=== PATIENT | female | born 2000 | race Caucasian/White ===

== ENCOUNTER → 2024-11-04 | Outpatient (CLI) | payer OTHER, SELFPAY ==
[2024-11-04 08:54] LABS: Hemoglobin A1c 5.3 % (<=5.6)
[2024-11-04 08:57] LABS: ALB/GLOB Ratio 1.7 RATIO (0.9-2.4); AST(SGOT) 25 U/L (<=31); Alanine Aminotransfer ALT/SGPT 18 U/L (<=34); Albumin, Serum 4.6 g/dL (3.5-5.0); Alkaline Phosphatase 82 U/L (35-104); Anion Gap 10 (5-15); BUN 14 mg/dL (4-19); BUN/Creat Ratio 16.6 RATIO (10-20); Calcium,Total 9.4 mg/dL (7.6-11.0); Carbon Dioxide 22.8 mmol/L (21.0-32.0); Chloride 104 mmol/L (98-108); Cholesterol 193 mg/dL (<=190); Creatinine, Serum 0.86 mg/dL (0.70-1.20); EST Glomerular Filtration Rate 97 (>60); Globulin 2.8 g/dL (2.2-4.2); Glucose 96 mg/dL (70-99); High Density Lipoprotein 60 mg/dL; Low Density Lipoprotein Calc. 118 mg/dL; Protein, Total 7.3 g/dL (5.9-8.4); Sodium Level 137 mmol/L (133-145); Total Bilirubin 0.41 mg/dL (0.00-1.30); Triglycerides 73 mg/dL; Very Low Density Lipoprotein 15 mg/dL (5-40); cholesterol:hdl ratio screen 3.21
== END | disposition home or self-care (01) ==
LOC: LAB 08:12
PROVIDERS: PCP Nurse Practitioner Family; Referring Provider Nurse Practitioner Family; Visit Provider Nurse Practitioner Family
DX: Z00.00 Encounter for general adult medical examination without abnormal findings (principal); Z13.1 Encounter for screening for diabetes mellitus; Z13.220 Encounter for screening for lipoid disorders
CPT/HCPCS: 36415; 80053; 80061; 83036

== ENCOUNTER 2025-02-05 16:56 | Emergency (ER) | payer OTHER, SELFPAY ==
[2025-02-05 16:57] VITALS: BP 147/101; PULSE 85; RESP 16; TEMP 35.7; O2SAT 99; BMI 31.6
--- NOTE | 2025-02-05 17:08 | EDS_ITS ---
HPI History of Present Illness Chief Complaint: Upper Extremity Injury Detail of Chief Complaint: Injury to left elbow Informant: patient Narrative Narrative: Patient presents to the emergency department with injury to her left arm that occurred yesterday. Patient was going into the pool and slipped and struck her left arm on the edge of the step. She is right-hand dominant. Having pain with movement at the elbow and feels something popping on the inside. PFSH PFSH Medical History no medical history Home Medications ?Medication ?Instructions ?Recorded ?Last Taken ?Type NK 02/05/25 Unknown History Allergy/AdvReac Type Severity Reaction Status Date / Time amoxicillin (From Augmentin) Allergy Intermediate HIVES Verified 02/05/25 16:59 cefdinir (From Omnicef) Allergy Intermediate Hives Verified 02/05/25 16:59 cephalexin (From Keflex) Allergy Intermediate Hives Verified 02/05/25 16:59 clavulanic acid (From Allergy Intermediate HIVES Verified 02/05/25 16:59 Augmentin) Social History Smoking Status: Never smoker ROS ROS ED Review of Systems ROS Unobtainable: other Constitutional Constitutional ED: Reports lethargy; Denies chills, fever(s), sweats or weight loss Eyes Eyes: Denies blurry vision, change in vision or diplopia ENT ENT ED: Denies rhinorrhea or sore throat Cardiovascular Cardiovascular: Denies chest pain, orthopnea or racing heartbeat Respiratory/Chest Respiratory/Chest: Denies cough, dyspnea, dyspnea on exertion, orthopnea or sputum Gastrointestinal Gastrointestinal: Denies abdominal pain, diarrhea, nausea or vomiting Genitourinary Genitourinary ED: Denies dysuria, hematuria or urinary frequency Musculoskeletal Musculoskeletal: Reports other Details: Left elbow pain/injury ; Denies arthralgias, back pain, myalgias or neck pain Integumentary Denies abscess, Abrasions or rash Neurologic Neurologic: Denies headache(s) or weakness Psychiatric Psychiatric: Denies anxiety, depression or suicidal thoughts Endocrine Endocrinology: Denies polydipsia, polyphagia or polyuria Hematologic/Lymphatic Hematologic/Lymphatic: Denies easy bleeding, easy bruising or lymphadenopathy Allergic/Immunologic Allergic/Immunologic ED: Denies mouth swelling, tongue swelling or urticaria EXAM Physical Exam Const Vital Signs: 02/05/25 16:57 Temperature 96.3 F L Temperature Source Temporal Pulse Rate 85 Respiratory Rate 16 Blood Pressure 147/101 H Blood Pressure Mean 116 Pulse Ox 99 Oxygen Delivery Method Room Air Positive well nourished and well developed General Appearance ED: well developed and NAD HEENT Reports TM's clear and moist mucous membranes normocephalic and atraumatic; Negative for trauma or tenderness Tympanic Membrane ED: Yes TM's clear Eyes PERRL and EOMs intact bilaterally General Eye ED: Negative for pale conjunctiva or scleral icterus Neck no lymphadenopathy, supple and no JVD General: Negative for tenderness Chest Wall inspection of chest normal and palpation of chest normal Chest: Negative for tenderness Resp normal respiratory effort and clear to auscultation bilaterally Effort and Inspection: Negative for respiratory distress or pain with movement Auscultation: Negative for rhonchi, wheezes or diminished lung sounds Cardio regular rate, regular rhythm, S1 normal heart sound, S2 normal heart sound and no murmurs Peripheral Pulses: pulses 2+ throughout GI normal to inspection, nondistended, normoactive bowel sounds, soft to palpation, non-tender, non-distended and no masses Back/Spine no CVA tenderness and no thoracic nor lumbar tenderness Extremity Extremity Narrative: Left elbow-patient has diffuse soft tissue swelling. She has limited range of motion in flexion and extension secondary to pain. She has pain with pronation and supination. She is superficial abrasion to the lateral aspect of the elbow and proximal forearm. Neurovascular intact distally. General Extremety ED: Negative for edema General Extremity: Negative for edema Neuro oriented x3, CN's II-XII intact bilaterally, no sensory deficits noted and gait normal Sensorium / Orientation: awake, alert, oriented to person, oriented to place and oriented to time Motor Exam: strength 5/5 throughout and strength abnormal Psych mental status grossly normal Skin no rashes or lesions noted and no wounds MDM MDM MDM Narrative Medical decision making narrative: Patient presents with a fall that occurred yesterday and injury to the left elbow. She has superficial abrasion. She is up-to-date on tetanus. X-rays of the left elbow obtained 3 views showed no obvious fracture although initial lateral view was limited therefore radiology asked that we repeat the lateral view which was performed. Again no fractures were noted. This point suspect likely contusion. Will place in a sling. Advised to follow-up with primary care physician within next 5 to 7 days as if she continues to have significant discomfort may require repeat imaging. Patient does not want thing for pain. She is instructed to use ice to the area. Radiography Diagnostic Testing: Three-view x-ray of left elbow obtained interpreted by myself as no evidence of fracture or dislocation. Radiology in agreement. Discharge Plan Triage Chief Complaint: Upper Extremity Injury ED Provider: Elizabeth Ramos Dx/Rx/DC Orders Clinical Impression: Contusion of elbow, left Instructions: ED Contusion, Elbow Prescriptions: No Action NK Primary Care Provider: Pat Ortiz Referrals: Pat Ortiz [facility] [Primary Care Provider] - 5-7 Days Print Language: Persian Disposition Disposition: Home, Self Care
--- NOTE | 2025-02-05 17:20 | RAD_ITS ---
PROCEDURE: ELBOW MIN 3 VIEWS 02/05/2025 REASON FOR EXAM: INJURY TECHNIQUE: ELBOW MIN 3 VIEWS COMPARISON: None FINDINGS: No displaced fracture or traumatic malalignment. There is poor positioning on the lateral view which limits this evaluation, particularly for evidence of joint effusion. Posterior soft tissue swelling. RAD/Elbow min 3 Views IMPRESSION: 1. Suboptimal patient positioning on the lateral view limits this evaluation. Within these limitations, no evidence of a displaced fracture. Consider repeating the lateral view if there is persistent clinical concern. 2. Posterior soft tissue swelling. Reading Location: [facility]
--- OUTSIDE RECORDS SUMMARY | 2025-02-05 17:25 | XMS RPT_ITS | CCD ---
Author Organization [facility] Care Team Providers Care Director Retirement Name Role Phone LISET SCHMITZ Unavailable Unavailable REFERRED, SELF Unavailable Unavailable LISET SCMHITZ Unavailable Unavailable Manoj Dior MD Primary Care Provider Manoj Dior MD Primary Care Provider MANOJ DIOR Primary Care Unavailable ROSETTE SIDDIQI Attending Unavail able MANOJ DIOR Primary Care Unavailable ROSETTE SIDDIQI Attending Unavail able Pat Ortiz Primary Care Unavailable Pat Ortiz Attending Unavailable Pat Ortiz Referring Unavailable Amos Malin Referring Unavailable Kody Lomax Attending Unavailable Amos Malin Primary Care Unavailable Allergies Allergy Classification Reported Allergen(s) Allergy Type Date of Onset Reaction(s) Facility (6 sources) cephalexin; Translations: [CEPHALEXIN] Drug Allergy 5 [facility] Repository (6 sources) AMOXICILLIN-POT CLAVULANATE; Translations: [AMOXICILLIN-POT CLAVULANATE] Propensity to adverse reactions to drug (disorder) 5 [facility] Repository (5 sources) cefdinir; Translations: [CEFDINIR] Drug Allergy 0 [facility] Work Phone: Medications Current Medications Medication Drug Class(es) Dates Sig (Normalized) Sig (Original) copper 313 mg drug implant (3 sources) Copper-containing Intrauterine Device Start: 02-09-2023 End: 02-06-2033 copper (PARAGARD) 380 square mm intrauterine device 1 Intra Uterine Device by INTRAUTERINE route as directed. 1 Intra Uterine Device 0 02/09/2023 02/06/2033 Active Comment on above: 1 Intra Uterine Marie ce by INTRAUTERINE route as directed. MULTIVITAMIN ORAL (4 sources) MULTIVITAMIN ORA L Take by mouth. 0 Active Comment on above: Take by mouth. tranexamic acid 650 mg oral tablet (3 sources) Antifibrinolytic Agent Start: 03-06-2023 End: 03-11-2023 take 2 tablets by mouth every eight hours as needed tranexamic acid (LYSTEDA) 650 mg tablet Take 2 tablets by mouth three times daily as needed (heavy menstrual bleeding) for up to 5 days. 30 tablet 0 03/06/2023 Active Comment on above: Take 2 tablets by mo uth three times daily as needed (heavy menstrual bleeding) for up to 5 days. 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 1 tablet 0 01/27/2023 01/27/2023 Comment on above: Take 1 tablet by yordan th one time only for 1 dose. Ethinyl Estradiol / Ferrous fumarate / Norethindrone (2 sources) Estrogen Start: 10-07-2021 End: 03-06-2023 take 1 tablet by mouth once daily, then take 0.05 tablet by mouth once Norethin Zackery-Eth Estrad-FE (BLISOVI FE ,) 1 mg-20 mcg (21)/75 mg (7) per tablet Indications: Contraceptive education Take 1 tablet by mouth once daily. 84 tablet 2 10/07/2021 03/06/2023 Discontinued Start: 10-07-2021 take 1 tablet by yordan th once daily, then take 0.05 tablet by mouth once Norethin Zackery-Eth Estrad-FE (BLISOVI FE 08/08, ,) 1 mg-20 mcg (21)/75 mg (7) per tablet Indications: Contraceptive education Take 1 tablet by mouth once daily. 84 tablet 2 10/07/2021 Active Comment on above: Take 1 tablet by yordan th once daily. miSOPROStol 0.2 mg oral tablet (2 sources) Prostaglandin E1 Analog Start: 01-27-2023 End: 03-06-2023 miSOPROStol (CYTOTEC) 200 mcg tablet Take two tablets PO night before procedure and two tablets morning of procedure 4 tablet 0 01/27/2023 03/06/2023 Discontinued Comment on above: Take two tablets PO night before procedure and two tablets morning of procedure Problems Problem Classification Problem Date Documented Da te Episodic/Chronic Anxiety disorders (1 source) Anticipatory anxiety; Translations: [Anxiety disorder, unspecified] 01-27-2023 Chronic Contraceptive and procreative management (6 sources) Patient encounter status; Translations: [Encounter for other general counseling and advice on contraception] 01-27-2023 Episodic Other female genital disorders (1 source) Abnormal uterine bleeding; Translations: [Abnormal uterine and vaginal bleeding, unspecified] 03-06-2023 Chronic Other screening for suspected conditions (not mental disorders or infectious disease) (1 source) Cancer cervix screening status; Translations: [Encounter for screening for malignant neoplasm of cervix] 02-24-2024 Episodic Results Test Name Value Interpretation Reference Range [facility] Metabolic Prof [facility] 11-04-2024 Albumin [Mass/Vol] 4.6 g/dL Normal 3.5-5.0 [facility] Comment on above: Performed By: #### L 500.4100, L500.4050, L501.9985 #### [facility] [address] [place], [address] Albumin/Globulin [Mass ratio] 1.7 {ratio} Normal 0.9-2.4 [facility] Comment on above: Performed By: #### L 500.4100, L500.4050, L501.9985 #### [facility] [address] [place], [address] ALK PHOS 82 U/L Normal 35-104 [facility] Comment on above: Performed By: #### L 500.4100, L500.4050, L501.9985 #### [facility] [address] [place], [address] ALT [Catalytic activity/Vol] 18 U/L Normal <=34 [facility] Comment on above: Performed By: #### L 500.4100, L500.4050, L501.9985 #### [facility] [address] [place], [address] AST [Catalytic activity/Vol] 25 U/L Normal <=31 [facility] Comment on above: Performed By: #### L 500.4100, L500.4050, L501.9985 #### [facility] [address] [place], [address] Bilirubin [Mass/Vol] 0.41 mg/dL Normal 0.00-1.30 [facility] Comment on above: Performed By: #### L 500.4100, L500.4050, L501.9985 #### [facility] [address] [place], [address] BUN/CRE 16.6 RATIO Normal 10-20 [facility] Comment on above: Performed By: #### L 500.4100, L500.4050, L501.9985 #### [facility] [address] [place], [address] Calcium [Mass/Vol] 9.4 mg/dL Normal 7.6-11.0 [facility] Comment on above: Performed By: #### L 500.4100, L500.4050, L501.9985 #### [facility] [address] [place], [address] Chloride [Moles/Vol] 104 mmol/L Normal 98-108 [facility] Comment on above: Performed By: #### L 500.4100, L500.4050, L501.9985 #### [facility] [address] [place], [address] CO2 [Moles/Vol] 22.8 mmol/L Normal 21.0-32.0 [facility] Comment on above: Performed By: #### L 500.4100, L500.4050, L501.9985 #### [facility] [address] [place], [address] Creatinine [Mass/Vol] 0.86 mg/dL Normal 0.70-1.20 [facility] Comment on above: Performed By: #### L 500.4100, L500.4050, L501.9985 #### [facility] [address] [place], [address] GAP 10 Normal 5-15 [facility] Comment on above: Performed By: #### L 500.4100, L500.4050, L501.9985 #### [facility] [address] [place], [address] GFR/1.73 sq M.predicted among non-blacks MDRD (S/P/Bld) [Vol rate/Area] 97 mL/min/{1.73_m2} Normal >60 [facility] Comment on above: Result Comment: mL/m in/1.73m2 CKD-EPI Creatinine Equation (2020) Performed By: #### L 500.4100, L500.4050, L501.9985 #### [facility] [address] [place], [address] Globulin (S) [Mass/Vol] 2.8 g/dL Normal 2.2-4.2 [facility] Comment on above: Performed By: #### L 500.4100, L500.4050, L501.9985 #### [facility] [address] [place], [address] Glucose [Mass/Vol] 96 mg/dL Normal 70-99 [facility] Comment on above: Performed By: #### L 500.4100, L500.4050, L501.9985 #### [facility] [address] [place], [address] Potassium [Moles/Vol] 4.0 mmol/L Normal 3.3-5.1 [facility] Comment on above: Performed By: #### L 500.4100, L500.4050, L501.9985 #### [facility] [address] [place], [address] Sodium [Moles/Vol] 137 mmol/L Normal 133-145 [facility] Comment on above: Performed By: #### L 500.4100, L500.4050, L501.9985 #### [facility] [address] [place], [address] T PROT 7.3 g/dL Normal 5.9-8.4 [facility] Comment on above: Performed By: #### L 500.4100, L500.4050, L501.9985 #### [facility] [address] [place], [address] Urea nitrogen [Mass/Vol] 14 mg/dL Normal 4-19 [facility] Comment on above: Performed By: #### L 500.4100, L500.4050, L501.9985 #### [facility] [address] [place], [address] Hemoglobin A1con 11-04-2024 HbA1c (Bld) [Mass fraction] 5.3 % Normal <=5.6 [facility] Comment on above: Result Comment: Norm al < 5.7 % Prediabetic 5.7 - 6.4 % Diabetic >or= 6.5 % Please note range changes. Performed By: #### L 500.4100, L500.4050, L501.9985 #### [facility] [address] [place], [address] Lipid Profileon 11-04-2024 CHOL:HDL 3.21 Normal [facility] Comment on above: Performed By: #### L 500.4100, L500.4050, L501.9985 #### [facility] [address] [place], [address] Cholesterol [Mass/Vol] 193 mg/dL High <=190 [facility] Comment on above: Result Comment: Chol esterol level, Desirable <200 mg/dL Borderline high cholesterol 200-239 mg/dL High cholesterol >=240 mg/dL Recommendations of the NCEP Adult Treatment Panel for the following risk-cutoff thresholds for the [place] population. Performed By: #### L 500.4100, L500.4050, L501.9985 #### [facility] [address] [place], [address] Cholesterol in HDL [Mass/Vol] 60 mg/dL Normal [facility] Comment on above: Result Comment: Bhumi onal Cholesterol Education Program (NCEP) guidelines: <40 mg/dL: Low HDL-cholesterol (major risk factor for CHD) >= 60 mg/dL: High HDL-cholesterol (negative risk factor for CHD) HDL-cholesterol is affected by a number of factors, e.g. smoking, exercise, hormones, sex and age. Performed By: #### L 500.4100, L500.4050, L501.9985 #### [facility] [address] [place], [address] Cholesterol in LDL [Mass/Vol] 118 mg/dL Normal [facility] Comment on above: Result Comment: Bord csscdv=786-680 mg/dL Higher Upau=045 mg/dL or greater Performed By: #### L 500.4100, L500.4050, L501.9985 #### [facility] [address] [place], [address] Cholesterol in VLDL [Mass/Vol] 15 mg/dL Normal 5-40 [facility] Comment on above: Performed By: #### L 500.4100, L500.4050, L501.9985 #### [facility] [address] [place], [address] Triglyceride [Mass/Vol] 73 mg/dL Normal [facility] Comment on above: Result Comment: The drugs N-Acetylcysteine and Metamizole may falsely depress this assay. Normal range: <150 mg/dL Borderline High: 150-199 mg/dL High: 200-499 mg/dL Very High: >500 mg/dL Performed By: #### L 500.4100, L500.4050, L501.9985 #### [facility] [address] [place], [address] Office Visit Reporton 2023 Office Visit Report [facility] [address] [place] [address] OFFICE VISIT Date of Service: 12/07/23 MR#: [id number] Acct: [id number] Patient: SHANTHI DAMON Rep #: [id number] : 2000 Provider: LUCITA Ventura Age/Sex: 23/F Location: [facility] Status: Signed Intake Intake Visit Reasons: PE/NON DOT/DRUG SCREEN/CHRIS IND Office Procedures [facility] Billing Sheet Testing Breath Alcohol Test in ED (saxophone teacher fee charged): No Breath Alcohol in [facility]: No Breath Alcohol Test Pre-Employment: No Chest X-Ray (interpreted by radiologist): No DOT Drug Screen: No DOT Physical Exam: No DOT Pre-Employment Breath Alcohol: No DOT Pre-Employment Drug Screen: No DOT Reasonable Suspicion: No Drug Screen Collection Only: No Drug Test Performed by another entity: No ECG: No ED exhibition specialist Fee: No Employer Ordered Physical: No Flu Test: No Functional Capacity Evaluation: No Glucose (Finger): No Hair Collection Drug Screen: No Hair Collection Only: No Hair Testing Extended (Opiates): No HCG: No Hearing (Audiogram) Test: No Non-DOT Breath Alcohol Test in ED: No Non-DOT Random Drug Screen: No Non-DOT Reasonable Suspicion: No On Site Service Call (min of 1 hr plus cost of drug screen): No Other DOT Drug Screen: No Other Non-DOT Drug Screen: No Post-Accident DOT Drug Screen (in ED saxophone teacher fee charged): No Post-Accident DOT Drug Screen in [facility]: No Post-Accident Non-DOT Breath Alcohol Test: No Post-Accident NON-DOT Drug Screen (saxophone teacher fee charged in ED): No Post-Accident NON-DOT Drug Screen in ED (saxophone teacher fee charged): No Post-Accident NON-DOT Drug Screen in [facility]: No Pre-Employment Drug Screen [facility]: No Pre-Employment Drug Screen: Yes Pre-Employment PE: No Random Consortium DOT (yearly plus drug testing fee): No Random Consortium Non-DOT (yearly plus drug testing fee): No Respirator Clearance (form only): No Respirator Fit Testing: No RSV/Flu Amber: No Saliva Drug Screen: No Second Drug Screen: No Strep Amber: No TB Test: No Tdap (over age 7): No Titmus Screening: No Vision Test: No Stress Test (conducted interpreted by a community health educator): No Occquant-Quantiferon: No 03/07/24 0651 Date Kody Hernández Signature: Date (if applicable) CC: Normal [facility] C. trachomatis+N. gonorrhoea e DNA JOSE ARMANDO+probe Ql (Unsp spec)on 02-24-2024 C. trachomatis rRNA JOSE ARMANDO+probe Ql (Unsp spec) Negative Normal Negative for Chlamydia trachomatis by amplificaton [facility] Comment on above: Order Comment: Speci men Type: SWAB Ordering Facility: [facility] Address: [address] [place] [address] Performed By: #### 3 6902-5 #### [facility] CLIA [id number] [address] [place] [address] [place] N. gonorrhoeae rRNA JOSE ARMANDO+probe Ql (Unsp spec) Negative Normal Negative for Neisseria gonorrhoeae by amplification [facility] Comment on above: Order Comment: Speci men Type: SWAB Ordering Facility: [facility] Address: [address] [place] [address] Performed By: #### 3 6902-5 #### [facility] CLIA [id number] [address] [id number] [place] CNOVon 02-24-2024 CNOV Office Visit (OBGYWM ) ----- SHANTHI DAMON ([id number]) 4 F UPA Date Time Provider Department 02/24/24 9:20 AM ROSETTE SIDDIQI OBGYWM During your visit today, we recorded the following information about you: Blood pressure Weight Height Last Period 112/70 74.4 kg 1.6 m 02/06/24 Rosette Siddiqi MD 02/24/2024 9:30 AM Signed Guitar Teacher offered: Patient declinesJenise Maki is a 23 year old who presents for an annual gynecologic exam without complaints. Got kinyarwanda frank puppy and new house. Menses: cycles every 28-30 days and 5-6 days of flow. 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 PAST MEDICAL HISTORY 08/2015: Menstrual cycle disorder No date: NEGATIVE MEDICAL HISTORY Comment: normal Color visionPAST SURGICAL HISTORY 02/14/2021: TONSILLECTOMY AND ADENOIDECTOMY 02/11/2024: TOOTH EXTRACTION Comment: [place] teeth FAMILY HISTORY Problem Relation Age of Onset Seizures Mother None Father No Known Problems Sister Hypertension Maternal Grandmother None Maternal Grandfather None Paternal Grandmother None Paternal Grandfather Breast Cancer Maternal great-grandmother age unknown SOCIAL HISTORY Social History Tobacco Use Smoking status: Never Smokeless tobacco: Never Vaping Use Vaping Use: Never used Substance Use Topics Alcohol use: Yes Comment: occasional Drug use: Never REVIEW OF SYSTEMS Abdomen: No abdominal pain, nausea, vomiting, diarrhea, or constipation. No bloating, early satiety, indigestion, or increased flatulence. Bladder: No dysuria, gross hematuria, urinary frequency, urinary urgency, or incontinence. Breast: No breast lumps, nipple d/c, overlying skin changes, redness or skin retraction. Allergies and current medication updated:Yes EXAM: BP 112/70 Ht 5' 3 (1.60m) Wt 164 lb (74.4kg) LMP 02/06/2024 BMI 29.06 kg/(m2). GENERAL: pleasant, female in no apparent distress HEENT: Normocephalic, atraumatic, mucus membranes moist, and no lesions NECK: Supple, full range of motion, no adenopathy, and thyroid normal DERMATOLOGY: Normal, without lesions, non-icteric, and non-hirsute BREAST: soft, non-tender, symmetric, no dominant mass, normal nipple-areolar complex, no lymphadenopathy, and no nipple discharge ABDOMEN: soft, non-tender, and no masses PELVIC: external genitalia normal, normal Bartholin's glands, urethra, Jauca's glands, no vulvar lesions, no cervical lesions, good vaginal support, physiologic discharge present, normal appearing perineal body and perianal region, IUD strings visible BIMANUAL: uterus normal size, shape and consistency, no adnexal masses, and non-tender RECTOVAGINAL: deferred. NEURO: alert and oriented x3,exam grossly non-focal EXTREMITIES: normal ASSESSMENT/PLAN: 1) Health maintenance: Pap done with reflex HPV. Mammogram starting age 40. Nutrition, exercise and routine health maintenance exams reviewed. HPV vaccine: completed series 2) Contraception: IUD. Contraceptive options reviewed and information provided. 3) STD screening: Accepted STD check for Gonorrhea and Chlamydia. 4) Follow up one year or sooner as needed Rosette Gudino MD Allergies As of Date: 02/24/2024 Noted Allergy Reaction AUGMENTIN (AMOXICILLIN-POT CLAVUL*07/15/2019 4 - Hives KEFLEX (CEPHALEXIN) 07/15/2019 4 - Hives OMNICEF (CEFDINIR) 09/14/2009 4 - Hives Date Reviewed: 02/24/2024 Reviewed by: Meghan Rice MA - Fully Assessed Reason for Visit: Well Woman [1463] Primary Visit Diagnosis:Encounter for gynecological examination (general) (routine) without abnormal findings [Z01.419] Other Visit Diagnoses:Screening for cervical cancer [Z12.4] Encounter for screening for human papillomavirus (HPV) [Z11.51] Screen for STD (sexually transmitted disease) [Z11.3] Order(s):PAP TEST [[id number]] Order #: [id number] GONORRHEA/CHLAMYDIA NAAT [SQGCCT] Order #: [id number] Prescriptions as of 02/24/2024 - tranexamic acid (LYSTEDA) 650 mg tablet Take 2 tablets by mouth three times daily as needed (heavy menstrual bleeding) for up to 5 days. - copper (PARAGARD) 380 square mm intrauterine device 1 Intra Uterine Device by INTRAUTERINE route as directed. - MULTIVITAMIN ORAL Take by mouth. Problem List As Of Date 02/24/2024 Noted Resolved Well adult exam [Z00.00] 07/14/2014 Disposition: (more content not included)... Normal [facility] PAP TESTon 02-24-2024 ADEQUACY Satisfactory for interpretation. Normal [facility] Comment on above: Order Comment: Speci men Type: FLUID SPECIMEN Ordering Facility: [facility] Address: [address] [place] [address] Performed By: #### L [id number] #### [facility] CLIA [id number] [address] [place], [place] [address] [address] [place] CASE REPORT Normal [facility] Comment on above: Order Comment: Speci men Type: FLUID SPECIMEN Ordering Facility: [facility] Address: [address] [place] [address] Result Comment: Gyne cologic Cytology Report Case: [id number] Authorizing Provider: Rosette Siddiqi, Collected: 02/24/2024 09:34 AM Ordering Location: OB/Gynecology Received: 02/24/2024 12:01 PM First Screen: [place], [place]iah, CT, ASCP Specimen: Pap Test, ThinPrep, Cervix Performed By: #### L [id number] #### [facility] CLIA [id number] [address] [place], [place] [id number] [place] CLINICAL HISTORY, CYTOLOGY, SURVEYOR INSTRUMENT ASSISTANT First Pap Smear Normal [facility] Comment on above: Order Comment: Speci men Type: FLUID SPECIMEN Ordering Facility: [facility] Address: [address] [place] [address] Performed By: #### L [id number] #### [facility] CLIA [id number] [address] [place] [address] [place] FINAL PERFORMING LAB Normal [facility] Comment on above: Order Comment: Speci men Type: FLUID SPECIMEN Ordering Facility: [facility] Address: [address] [place] [address] Result Comment: Tech nical component, lung puller screening performed at [facility], [address] [place], [place] [id number] CLIA# [id number] Diagnostic interpretation performed at [facility], [address] [place], [place] [id number] CLIA# [id number] Space Buyer: Felix Worthington M.D. Performed By: #### L [id number] #### [facility] CLIA [id number] [address] [place] [address] [place] HPV REFLEX HPV if Atypical Normal [facility] Comment on above: Order Comment: Speci men Type: FLUID SPECIMEN Ordering Facility: [facility] Address: [address] [place], [place] [address] Performed By: #### L [id number] #### [facility] CLIA [id number] [address] [place], [place] [id number] [place] INTERPRETATION, CYTOLOGY, SURVEYOR INSTRUMENT ASSISTANT Normal [facility] Comment on above: Order Comment: Speci men Type: FLUID SPECIMEN Ordering Facility: [facility] Address: [address] [place], [place] [id number] Result Comment: Nega tive for intraepithelial lesion or malignancy. Performed By: #### L [id number] #### [facility] CLIA [id number] [address] [place] [address] [place] LMP 02/06/2024 Normal [facility] Comment on above: Order Comment: Speci men Type: FLUID SPECIMEN Ordering Facility: [facility] Address: [address] [place] [address] Performed By: #### L [id number] #### [facility] CLIA [id number] [address] [place] [address] [place] PAP DISCLAIMER COMMENT The Pap Smear is a screening test for cervical cancer. False negative results occur with all screening tests, emphasizing the need for rescreening at recommended intervals, and clinical correlation. Normal [facility] Comment on above: Order Comment: Speci men Type: FLUID SPECIMEN Ordering Facility: [facility] Address: [address] [place] [address] Performed By: #### L [id number] #### [facility] CLIA [id number] [address] [place] [address] [place] PAP BELL NECK HAMMERER COMMENT This specimen has been analyzed by the ThinPrep Imaging System, an automated imaging and review system, which assists the laboratory in evaluating cells on ThinPrep Pap tests. Following automated imaging, selected sol from every slide are reviewed by a lung puller. Normal [facility] [place] Comment on above: Order Comment: Speci men Type: FLUID SPECIMEN Ordering Facility: [facility] Address: [address] [place] [address] Performed By: #### L [id number] #### [facility] CLIA [id number] [address] [place] [place] [address] [place] CNOVon 04-01-2023 CNOV Office Visit (OBGYWM ) ----- SHANTHI DAMON ([id number]) 4 F UPA Date Time Provider Department 04/01/23 3:20 PM ROSETTE SIDDIQI OBGYW During your visit today, we recorded the following information about you: Blood pressure Weight 124/80 74.4 kg Rosette Siddiqi MD 04/01/2023 3:18 PM Signed Guitar Teacher offered: Patient declines. Shanthi Damon presents today for IUD check. She had a Paraguard placed on 02/12/23. She has had no complications since placement. REVIEW OF SYSTEMS: GENERAL: Negative for fever PHYSICAL EXAMINATION: BP 124/80 Wt 164 lb (74.4kg) LMP 01/17/2023 ABDOMEN:soft, non-tender, no masses, no hepatosplenomegaly, and no lymphadenopathy EXTERNAL GENITALIA: Normal genitalia CERVIX: smooth, no lesions. IUD strings visible. UTERUS: normal size and non-tender ADNEXA: negative for tenderness or masses IMPRESSION/PLAN: IUD correctly positioned. Follow up for annual exam or sooner if needed. I spent a total of 20 minutes on the date of the service which included preparing to see the patient, [id number] patient care, completing clinical documentation, obtaining and/or reviewing separately obtained history, performing a medically appropriate examination, and counseling and educating the patient/family/caregiver . Rosette Gudino MD Allergies As of Date: 04/01/2023 Noted Allergy Reaction AUGMENTIN (AMOXICILLIN-POT CLAVUL*07/15/2019 4 - Hives KEFLEX (CEPHALEXIN) 07/15/2019 4 - Hives OMNICEF (CEFDINIR) 09/14/2009 4 - Hives Date Reviewed: 04/01/2023 Reviewed by: Shonda Rosenberg Ma - Fully Assessed Reason for Visit: IUD [60] Primary Visit Diagnosis:Surveillance of previously prescribed intrauterine contraceptive device [Z30.431] Other Visit Diagnosis:IUD (intrauterine device) in place [Z97.5] Prescriptions as of 04/01/2023 - tranexamic acid (LYSTEDA) 650 mg tablet Take 2 tablets by mouth three times daily as needed (heavy menstrual bleeding) for up to 5 days. - copper (PARAGARD) 380 square mm intrauterine device 1 Intra Uterine Device by INTRAUTERINE route as directed. - MULTIVITAMIN ORAL Take by mouth. Problem List As Of Date 04/01/2023 Noted Resolved Well adult exam [Z00.00] 07/14/2014 Disposition: Return in 1 year (on 04/01/2024) for Annual Exam. Follow-up and Disposition History for Encounter Date Provider Department Center 04/01/2023 [id number]-JIJABIO MCINTOSH,*JOHN [place] Encounter Status:Closed by ROSETTE VIVAS on 04/01/23 Normal [facility] [place] HCG QUAL UR B/Oon 03-06-2023 status Negative neg - pos Lilly adam [facility] Quality Check Yes [facility] [place] 06-26-2021 CNPN Telephone (HARINDER) ----- SHANTHI DAMON ([id number]) 4 F UPA Date Time Provider Department 06/26/21 GLADIS SALAMANCA During your visit today, we recorded the following information about you: Mary Quiles RN 06/26/2021 11:27 AM Signed ----- Message from Gladis Salamanca DO sent at 06/22/2021 11:55 AM EST ----- Preliminary labs are normal. Stop pills x 1 week and then start a new pack. Please take OCP at the same time every day. Allergies As of Date: 06/26/2021 Noted Allergy Reaction AUGMENTIN (AMOXICILLIN-POT CLAVUL*07/15/2019 4 - Hives KEFLEX (CEPHALEXIN) 07/15/2019 4 - Hives OMNICEF (CEFDINIR) 09/14/2009 4 - Hives Date Reviewed: 06/19/2021 Reviewed by: Veronica Montes LPN - Fully Assessed Reason for Visit: Results [95] Visit Diagnosis:Well woman exam [Z01.419] Order(s):norethindrone-e. estradiol-iron (MINASTRIN 24 FE) 1 mg-20 mcg(24) /75 mg (4)Take 1 tablet by mouth once daily.Disp: 84 tabletRfl: 3 Prescriptions as of 06/26/2021 - norethindrone-e.estradiol -iron (MINASTRIN 24 FE) 1 mg-20 mcg(24) /75 mg (4) Take 1 tablet by mouth once daily. - MULTIVITAMIN ORAL Take by mouth. Problem List As Of Date 06/26/2021 Noted Resolved Well adult exam [Z00.00] 07/14/2014 Prescriptions ordered this encounter Disp Refills Start End NORETHINDRONE 1 MG-E. ESTRADIOL 20 M* 84 t* 3 06/26/2021 09/18/2021 Route: ORAL Sig: Take 1 tablet by mouth once daily. Medications Discontinued During This Encounter Prescriptions - norethindrone-e.estradiol -iron (NOAH 24 FE) 1 mg-20 mcg(24) /75 mg (4) (Discontinued) Reported on 06/19/2021 - norethindrone-e.estradiol -iron (MINASTRIN 24 FE) 1 mg-20 mcg(24) /75 mg (4) (Discontinued) Reported on 06/19/2021 Encounter Status:Closed by GLADIS SALAMANCA on 06/26/21 Normal [facility] B-HCG SerPl-aCncon 1 HCG.beta subunit Qn m[IU]/mL Normal <5.0 [facility] Comment on above: Order Comment: Speci men Type: BLOOD SPECIMEN Result Comment: Waleska lea Performed By: #### 2 1198-7 #### [facility] CLIA [id number] [address] CNOVon 06-19-2021 CNOV Office Visit (AGOBPO B) ----- SCOTSHANTHI Sylvia ([id number]) 4 F [facility] Date Time Provider Department 06/19/21 3:00 PM GLADIS SALAMANCA During your visit today, we recorded the following information about you: Blood pressure Weight Height Last Period 116/88 72.2 kg 1.6 m 06/05/21 Veronica Montes LPN 06/19/2021 2:32 PM Incomplete - Please call the office before going to the hospital. - If you are , go to the ER at the [facility] main campus. Do not go to the outlying ER?s ([facility], [facility] or [facility]). - If you need to go to an ER and cannot or will not go downtown, please use one of [facility]?s ER?s (not [facility], [facility] or [facility]). Gladis Salamanca DO 06/19/2021 3:26 PM Signed SERVICE DATE: 06/19/2021 SERVICE TIME: 3:25 PM Subjective CHIEF COMPLAINT: BC follow up HPI: This is a 20 year old female who presents for 3-month follow-up of contraception. Treatment on pills 03/13/2021 as she was considering sexual activity with her partner Loestrin started at that time as she passed safety questions The first 2 months were perfect. Then during her third month she has been having breast tenderness, hair thinning, AUB, cramping. Currently she is long-term through the fourth pack. Took a test 1 week ago and was negative. Does not miss pills Takes them at the same time every day Periods were predictable within the placebo week for the first three months Quality of menses was the same No changes in mooed Taking pills horizontally More frequent headaches but they are the same quality as in the past No changes in vision Is studying [place] and business in [place]. Is not stressed at school. Has a strong relationship with her partner. PAST MEDICAL HISTORY Diagnosis Date - Menstrual cycle disorder 08/2015 - NEGATIVE MEDICAL HISTORY normal Color vision PAST SURGICAL HISTORY Procedure Laterality Date - REMOVE TONSILS/ADENOIDS,<12 Y/O 02/14/2021 FAMILY HISTORY Problem Relation Age of Onset - Seizures Mother - None Father - None Sister - Hypertension Maternal Grandmother - None Maternal Grandfather - None Paternal Grandmother - None Paternal Grandfather - Breast Cancer Maternal great-grandmother age unknown Social History Tobacco Use - Smoking status: Never Smoker - Smokeless tobacco: Never Used Vaping Use - Vaping Use: Never used Substance Use Topics - Alcohol use: Never - Drug use: Never (Not in a hospital admission) ALLERGIES Allergen Reactions - Augmentin [Amoxicil* Hives - Keflex [Cephalexin] Hives - Omnicef [Cefdinir] Hives COMPLETE REVIEW OF SYSTEMS: No fevers or chills No brittle finger nails No palpitations No shortness of breath breast tenderness, hair thinning, AUB, cramping Objective PHYSICAL EXAM: 06/19/21 1439 BP: 116/88 Weight: 159 lb 3.2 oz (72.2 kg) Height: 5' 3 (1.6 m) Physical Exam Performed: GENERAL: Alert, no distress, cooperative SKIN: Skin color, texture, turgor normal. No rashes or lesions. HEAD/SINUSES: No significant findings, wears mask EYES: PERRLA, EOMI ABDOMEN: Abdomen soft, non-tender, BS normal, No masses or organomegaly EXTREMITIES: Extremities normal, no deformities, edema, clubbing or skin discoloration. Good capillary refill. NEURO: Grossly normal cognition, motor function, and cranial nerves III-XII ASSESSMENT/PLAN: 1. Breakthrough bleeding on control pills - ICD9: 626.6, ICD10: N92.1 (primary diagnosis) - TSH BLD - T4 FREE/FREE THYROX - HCG QUANTITATIVE 2. Hair thinning - ICD9: 704.00, ICD10: L65.9 - BIOAVAIL TESTO/SHBG, FEM AND CHILD - DHEA-S BLD Check labs today Will call with next steps of care while waiting for Testosterone results If normal - stop pills x 7 days then start a new pack If AUB persists through these types of pills, then we'll try a different type of OCP If her TSH is abnormal, then we will address this Gladis Salamanca DO Referring Provider: GLADIS SALAMANCA(HISTORICAL) [[id number]] Allergies As of Date: 06/19/2021 Noted Allergy Reaction AUGMENTIN (AMOXICILLIN-POT CLAVUL*07/15/2019 4 - Hives KEFLEX (CEPHALEXIN) 07/15/2019 4 - Hives OMNICEF (CEFDINIR) 09/14/2009 4 - Hives Date Reviewed: 06/19/2021 Reviewed by: Veronica Montes LPN - Fully Assessed Reason for Visit: Contraception [26] Cmt: BC check Primary Visit Diagnosis:Breakthrough bleeding on control pills [N92.1] Other Visit Diagnosis:Hair thinning [L65.9] Order(s):TSH BLD [SQTSH] Order #: [id number] FUTURE T4 FREE/FREE THYROX [SQFT4] Order #: [id number] FUTURE HCG QUANTITATIVE [SQHCGQT] Order #: [id number] FUTURE BIOAVAIL TESTO/SHBG, FEM AND CHILD [SQBTSTFC] Order #: [id number] DHEA-S BLD [SQDHEAS] Order #: [id number] FUTURE Prescriptions as of 06/20/2021 - norethindrone-e.estradiol -iron (NOAH 24 FE) 1 mg-20 mcg(24) /75 mg (4) Chew and swall (more content not included)... Normal [facility] DHEA-S BLDon 06-19-2021 DHEA-S [Mass/Vol] 199.8 ug/dL Normal 65.1-368.0 [facility] Comment on above: Order Comment: Speci men Type: BLOOD SPECIMEN Result Comment: Refe rence ranges are age and gender specific. For additional information, reference range tables can be found in the laboratory test directory. The normal values are based on the following source: Dehydroepiandrosterone sulfate (DHEA S) [package insert V 17.0 Yi]. [facility], [place], [place]: February 2013. Performed By: #### F T4, 3016-3 #### [facility] CLIA [id number] [address] [facility] T4 FREE/FREE THYROXon 2020 Free T4 [Mass/Vol] 1.4 ng/dL Normal 0.9-1.7 [facility] Comment on above: Order Comment: Jess galvez Type: BLOOD SPECIMEN Performed By: #### F T4, 3016-3 #### [facility] CLIA [id number] [address] TSH SerPl-aCncon 06-19-2021 TSH Qn 2.300 m[IU]/L Normal 0.510-4.300 [facility] Comment on above: Order Comment: Jess galvez Type: BLOOD SPECIMEN Result Comment: If t he patient is , TSH reference range varies by gestational period: First Trimester (weeks 9-12): 0.180-2.990 mcIU/mL Second Trimester: 0.110-3.980 mcIU/mL Third Trimester: 0.480-4.710 mcIU/mL Bill Ward et al. A Practical Approach for the Verifications and Determination of Site- and Trimester-Specific Reference Intervals for Thyroid Function tests in . Thyroid, 2019:29:3:412-420. Maikol Méndez, et al. 2017 Guidelines of the [place] Thyroid Association for the Diagnosis and Management of Thyroid Disease during and the . Thyroid, 2017:27:3:315-389. Reference ranges were not locally established for this patient's age group. The normal values are based on the following source: Madai W, Kadeem Bolanos. Reference Ranges for Adults and Children: Pre-analytical Considerations. [facility] Performed By: #### F T4, 3016-3 #### [facility] CLIA [id number] [address] CNPTayler 04-26-2021 CNPN Telephone (OBGWMA) ----- SHANTHI DAMON ([id number]) 02 [facility] Date Time Provider Department [facility]26[facility] your visit today, we recorded the following information about you: Ernst Murray LPN 04/26/2021 2:06 PM Signed Patient calling office with c/o bleeding after sexual intercourse for the first time 2 days ago along with cramping. Patient stated the intercourse was consensual. Bleeding stated to be red and light. Patient advised if bleeding increases and starts saturated a pad/ tampon in 45-60 min, to go to ER. Patient also recommended to make an appointment for exam. Patient verbalized understanding. Patient transferred to call center. Ernst Murray LPN Allergies As of Date: 04/26/2021 Noted Allergy Reaction AUGMENTIN (AMOXICILLIN-POT CLAVUL*07/15/2019 4 - Hives KEFLEX (CEPHALEXIN) 07/15/2019 4 - Hives OMNICEF (CEFDINIR) 09/14/2009 4 - Hives Date Reviewed: 03/28/2021 Reviewed by: Daysi Zacarias Ma - Fully Assessed Reason for Visit: Nurse Triage Call [185] Prescriptions as of 04/26/2021 - norethindrone-e.estradiol -iron (NOAH 24 FE) 1 mg-20 mcg(24) /75 mg (4) Chew and swallow one (1) tablet daily. - norethindrone-e.estradiol -iron (MINASTRIN 24 FE) 1 mg-20 mcg(24) /75 mg (4) Take 1 tablet by mouth once daily. - MULTIVITAMIN ORAL Take by mouth. Problem List As Of Date 04/26/2021 Noted Resolved Well adult exam [Z00.00] 07/14/2014 Encounter Status:Closed by ERNST MURRAY on 04/26/21 [facility] OBSOLETEon 04-08-2021 OBSOLETE Refill (AGOBPOB) ----- SHANTHI DAMON ([id number]) 02 F UPA Date Time Provider Department 04/08/21 GLADIS SALAMANCA During your visit today, we recorded the following information about you: Allergies As of Date: 04/08/2021 Noted Allergy Reaction AUGMENTIN (AMOXICILLIN-POT CLAVUL*07/15/2019 4 - Hives KEFLEX (CEPHALEXIN) 07/15/2019 4 - Hives OMNICEF (CEFDINIR) 09/14/2009 4 - Hives Date Reviewed: 03/28/2021 Reviewed by: Daysi Zacarias Ma - Fully Assessed Reason for Visit: Refill Request [94] Visit Diagnosis:Well woman exam [Z01.419] Order(s):norethindrone-e. estradiol-iron (MINASTRIN 24 FE) 1 mg-20 mcg(24) /75 mg (4)Take 1 tablet by mouth once daily.Disp: 84 tabletRfl: 0 Prescriptions as of 04/09/2021 - norethindrone-e.estradiol -iron (MINASTRIN 24 FE) 1 mg-20 mcg(24) /75 mg (4) Take 1 tablet by mouth once daily. - MULTIVITAMIN ORAL Take by mouth. Problem List As Of Date 04/08/2021 Noted Resolved Well adult exam [Z00.00] 07/14/2014 Prescriptions ordered this encounter Disp Refills Start End NORETHINDRONE 1 MG-E. ESTRADIOL 20 M* 84 t* 0 04/09/2021 07/02/2021 Route: ORAL Sig: Take 1 tablet by mouth once daily. Medications Discontinued During This Encounter Prescriptions - norethindrone-e.estradiol -iron (MINASTRIN 24 FE) 1 mg-20 mcg(24) /75 mg (4) (Discontinued) Take 1 tablet by mouth once daily. Encounter Status:Closed by GLADIS SALAMANCA on 04/09/21 [facility] Hanane 03-13-2021 DARIUS Office Visit (HUMBERTO Mathew) ----- SHANTHI DAMON ([id number]) 02 F UPA Date Time Provider Department 03/13/21 3:00 PM GLADIS SALAMANCA During your visit today, we recorded the following information about you: Blood pressure Weight Height Last Period 126/76 68.8 kg 1.62 m 03/09/21 Gladis Salamanca, 03/13/2021 3:22 PM Signed 03/13/21 HPI: Shanthi Damon is a 20 year old female who presents for a new patient, contraception visit. Mammo: no Menses: Predictable, bleeds 5 days Q 28 days. No IMS. No concerns for menorrhagia and dysmenorrhea. control: no history Would like to discuss contraception in case she decides to become sexually active with her BF. 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: 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: 15 years old History of unwanted sexual contact, verbal/physical/sexual assault or abuse: No Abnormal Paps: n/a FMH of breast/ovarian/colon or uterine cancer: MGGM breast cancer age unknown Genetic testing: no FAMILY HISTORY Problem Relation Age of Onset - Seizures Mother - None Father - Hypertension Maternal Grandmother - None Maternal Grandfather - None Paternal Grandmother - None Paternal Grandfather - None Sister ALLERGIES Allergen Reactions - Augmentin [Amoxicil* Hives - Keflex [Cephalexin] Hives - Omnicef [Cefdinir] Hives PRESENT MEDICATIONS: Current Outpatient Medications Medication Sig - MULTIVITAMIN ORAL Take by mouth. - oxyCODONE (ROXICODONE) 5 mg/5 mL oral solution Take 5 mL by mouth every 4 hours as needed for pain for up to 30 doses. (Patient not taking: Reported on 03/13/2021) No current facility-administered medications for this visit. PERSONAL HISTORY: Occupation: Just moved into [employer]. From [place]. Plans to study communications with a business minor. Social History Tobacco Use - Smoking status: Never Smoker - Smokeless tobacco: Never Used Vaping Use - Vaping Use: Never used Substance Use Topics - Alcohol use: Never - Drug use: Never PAST MEDICAL HISTORY Diagnosis Date - Menstrual cycle disorder 08/2015 - NEGATIVE MEDICAL HISTORY normal Color vision IMMUNIZATION Immunization History Administered Date(s) Administered DTaP (Age<7) 2002 01/06/2003 03/09/2003 12/08/2003 09/15/2007 HUMAN PAPILLOMAVIRUS QUADRIVALENT - Male and Females 07/14/2014 09/15/2014 Hepatitis B Peds/Adol 2002 2002 06/08/2003 Hib - 4 Dose Schedule 2002 01/06/2003 03/09/2003 09/12/2003 Human Papillomavirus 9-valent Vaccine, Recombinant 03/21/2015 IPV 2002 01/06/2003 03/09/2003 09/15/2007 Influenza Vaccine NASAL Quadrivalent 05/15/2014 Influenza Vaccine NASAL Tri (reflects Quad for 2012-) 05/19/2008 04/19/2009 05/28/2010 07/05/2010 05/10/2011 04/17/2012 05/14/2013 Influenza Vaccine, Split-Non Spec 05/05/2003 06/08/2003 05/07/2004 05/15/2005 05/18/2006 05/24/2007 MMR 09/12/2003 09/15/2007 Meningococcal Conjugate MCV4P Vaccine, IM 07/14/2014 07/15/2019 Pneumococcal Vac Conjugate(#7 thru OCTOBER 2009 then #13 thereafter) 2002 01/06/2003 03/09/2003 05/07/2004 Tdap (Age 7+) 07/14/2014 Varicella Vaccine 12/08/2003 07/14/2014 PAST SURGICAL HISTORY Procedure Laterality Date - NONE I have confirmed and edited as necessary, the PFSH and ROS obtained by others. YES REVIEW OF SYSTEMS PAIN ASSESSMENT: Negative for pain, history of chronic pain, or current treatment for a chronic pain condition. 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 General: well héctor (more content not included)... Normal [facility] ANES POSTPROC EVALon 021 ANES POSTPROC EVAL HNO ID: [id number] Author: Kenyetta Clarke MD Service: Anesthesiology Author Type: Anesthesiologist Type: Anesthesia Postprocedure Evaluation Filed: 02/14/2021 10:00 AM Note Text: POST ANESTHESIA EVALUATION NOTE : 2002 Procedure Summary Date: 02/14/21 Room / Location: [place] [address] / OR Anesthesia Start: 735 Anesthesia Stop: 914 Procedure: TONSILLECTOMY AND ADENOIDECTOMY, AGE 12 OR OVER (Bilateral Throat) Diagnosis: Chronic tonsillitis (Chronic tonsillitis [J35.01]) Surgeons: Zoila Murray MD Responsible Provider: Kenyetta Clarke MD Anesthesia Type: general ASA Status: 2 Anesthesia Type: general Last vitals Vitals Value Taken Time BP 124/78 02/14/21 0930 Temp 36.8 ?C (98.2 ?F) 02/14/21 0910 Pulse 71 02/14/21 0959 Resp 14 02/14/21 0959 SpO2 97 % 02/14/21 0959 Vitals shown include unvalidated device data. Post Anesthesia Patient Status Patient Evaluation: PACU. PACU/ICU Patient Condition: stable. Anticipated Disposition: phase 2 then home. Neurological Status: aware and responsive. Pulmonary Status: breathing comfortably on room air Airway Control: returned to baseline unsupported. Cardiovascular Status: stable. Pain Management: clinically adequate - multimodal analgesia pain management approach Postoperative Hydration: acceptable. Intraoperative Events: no significant anesthesia events Recommendation: continue current plan of care. No complications documented. SIGNATURE: Kenyetta Clarke MD PATIENT NAME: Shanthi Damon DATE: February 14, 2021 TIME: 10:00 AM CSN: [id number] [facility] ANES PRE-OPon 02-14-2021 ANES PRE-OP HNO ID: [id number] Author: Kenyetta Clarke MD Service: Anesthesiology Author Type: Anesthesiologist Type: Anesthesia Preprocedure Evaluation Filed: 02/14/2021 7:04 AM Note Text: ANESTHESIOLOGY DAY OF SURGERY NOTE : 2002 Procedure(s) (LRB): TONSILLECTOMY AND ADENOIDECTOMY, AGE 12 OR OVER (Bilateral) Surgeon(s): Zoila Murray MD Estimated body mass index is 26.44 kg/m? as calculated from the following: Height as of 02/12/21: 162 cm (5' 3.78). Weight as of 02/12/21: 69.4 kg (153 lb). Most recent hematocrit and potassium results: Hematocrit 42.8 01/25/2021 Potassium 4.2 01/25/2021 Relevant Problems No relevant active problems I - PHYSICAL EVALUATION AIRWAY Patient intubated: No. Mallampati: II. TM distance: >3 FB. Neck ROM: full ROM without neurological symptoms. Mouth opening: adequate. Short neck: no. Thick neck: no DENTAL Dental findings: teeth intact. Additional exam findings: no II - ANESTHESIA PLAN ASA Score: 2 Anesthetic Plan: general Airway type: ETT NPO Status: adequate Monitoring plan: Standard ASA. Postoperative analgesic plan: parenteral or oral opioids and multimodal analgesia. Anesthetic Risks, Benefits, Alternatives, Personnel Discussed. Consent obtained from: patient.Patient / Surrogate agrees to blood products: yes DNR status not reviewed with patient and/or family prior to surgery. Significant changes in the patient condition since the History and Physical, not otherwise documented in primary service progress note: no. Potential Anesthesia issues that may suggest increased risk of complications or contraindication to planned procedure: none. Vitals Value Taken Time BP 130/69 02/14/21 0642 Pulse 84 07/29/21 0642 Resp 16 02/14/21641 Temp 36.9 ?C (98.4 ?F) 02/14/21641 SpO2 99 % 02/14/21641 Facility-Administered Medications as of 02/14/2021 Medication Dose Route Frequency - lidocaine 10 mg/mL (1 %) 1-2 mg injection (XYLOCAINE) 0.1-0.2 mL INTRADERMAL PRN - lactated ringers iv infusion 5-30 mL/hr INTRAVENOUS CONTINUOUS - acetaminophen 1,000 mg tab(s) (TYLENOL) 1,000 mg ORAL ONCE - promethazine 25 mg tab(s) (PHENERGAN) 25 mg ORAL ONCE - scopolamine 1 mg over 3 days 1 Patch (TRANSDERM-SCOP) 1 Patch TRANSDERMAL q 72 HR And - [START ON 02/16/2021] scopolamine - REMOVE PATCH OTHER q 72 HR And - scopolamine - VERIFY patch OTHER q 8 H - midazolam (PF) 2 mg injection (VERSED) 2 mg INTRAVENOUS ONCE Outpatient Medications as of 02/14/2021 Medication Sig - MULTIVITAMIN ORAL Take by mouth. I have interviewed and examined the patient. I have reviewed the medical record and/or the pre-anesthesia evaluation, pertinent labs, and test results. This contains updated information obtained within 48 hours of Surgery/Procedure. SIGNATURE: Kenyetta Clarke MD PATIENT NAME: Shanthi Damon DATE: February 14, 2021 TIME: 7:03 AM CSN: [id number] [facility] OPERATIVE NOon 02-14-2021 OPERATIVE NO HNO ID: [id number] Author: Yaima Ferguson MD Service: Otolaryngology Author Type: Resident Type: Operative Report Filed: 02/14/2021 9:07 AM Note Text: ----- Attestation signed by Zoila Murray MD at 02/15/2021 1:36 PM I was present and scrubbed for the entire procedure. I completed the procedure with assistance from the resident. Zoila Murray MD ----- [place] [address] [place] [facility] OPERATIVE REPORT NAME: Shanthi Damon [facility] #: [id number] : 2000 DATE: 02/14/2021 SURGEON 1: Zoila Murray MD ASST. 1: Yaima Ferguson MD OPERATION: Total Tonsillectomy and adenoidectomy ANESTHESIA: General endotracheal intubation. PREOPERATIVE DIAGNOSIS: Chronic tonsillitis POSTOPERATIVE DIAGNOSIS: same OPERATIVE INDICATIONS: Shanthi Damon is a 20 year old female with a history of Chronic tonsillitis and tonsil stones who presented for the above. OPERATIVE FINDINGS: endophytic 2+ tonsils OPERATIVE PROCEDURE: Shanthi Damon was seen in the preop holding area, and consent was confirmed with parents. Patient was brought back to the operating room by the Anesthesia team. IV access was obtained and ET tube was placed without difficulty. A routine time-out was performed. The face and eyes were protected and a modified Braden-Jose M mouthgag was introduced atraumatically to the oral cavity and put in suspension. The palate was examined and there is no evidence of submucous cleft or bifid uvula. Two red Tavon-Annelise catheters were passed. Tonsils are approximately 2+ and the adenoids were examined with a mirror and these were approximately 70% in size. The adenoids were then taken down with suction bovie at 35 shi in midline first and then left and right sides until the bilateral choanae and torus tubarius were freed of obstruction. Tonsil sponges were placed. The right tonsil was then grasped with a curved tenaculum and mucosal sparing incision was made with a Bovie cautery at the setting 12. This was used to dissect out the tonsil in an avascular plane. The tonsils were bulky, especially inferiorly towards the base of tongue. The tonsils was removed en bloc and spot cautery was performed with the suction Bovie cautery at the setting 20. The left tonsil was then grasped with a curved tenaculum and mucosal sparing incision was made with a Bovie at the setting of 12 and the tonsil was dissected out in an avascular plane and taken out from the superior to inferior direction. There was significant tonsillitis with obscured plane as you approached inferiorly. This was suctioned after the tonsils was removed en bloc, then the spot cautery was performed with the suction Bovie at the setting 20 at the tonsillar fossa. Tonsillar sponge was placed in either tonsillar fossa. Adenoids were reevaluated. Hemostasis was achieved with a Bovie at the setting of 35 and the adenoids were dried up with this method. The tonsils were then reevaluated. The tonsillar fossas were spot cauterized with the suction Bovie and hemostasis was confirmed. The oral cavity and oropharynx were irrigated with saline and suctioned. The nasopharynx was suctioned. OG was passed. All hardware was removed and patient was turned over to the care of Anesthesia team who woke up the patient, extubated without difficulty. INTRAVENOUS FLUIDS: Per Anesthesia record. ESTIMATED BLOOD LOSS: <10 mL. DRAINS: None SPECIMENS: None. COMPLICATIONS: None. Yaima Ferguson MD for the service of Zoila Murray MD [facility] SURGICAL PATHOLOGYon SURGICAL PATHOLOGY Specimen #: [id number] Submitting Physician: ZOILA MURRAY FINAL DIAGNOSIS A. Bilateral tonsils, excision: - Chronic lymphoid follicular hyperplasia of tonsils. ISAAK 02/18/2021 Ca Maldonado MD (Electronic Signature) SPECIMEN SUBMITTED A: TONSILS CLINICAL DATA BILATERAL ADENOTONSILLECTOMY; CHRONIC TONSILLITIS GROSS DESCRIPTION A. Received in formalin, labeled tonsils are two markedly ragged, unoriented tonsils measuring 2.8 x 1.5 x 1.0 cm and 2.7 x 2.4 x 0.7 cm. The larger segment weighs 3.1 grams and the smaller segment weighs 2.4 grams. Both tonsils demonstrate markedly ragged surfaces with scattered areas of cautery present. Sectioning reveals aguayo-pink, smooth cut surfaces demonstrating normal architecture. No mass or lesions are identified. Front Desk Receptionist sections are submitted as follows: A1 larger segment, A2 smaller segment. JUNIE/jean 02/14/2021 [place] [address] Date of Report: 02/18/2021 Date of Procedure: 02/14/2021 Date of Receipt: 02/14/2021 Submitted by: ZOILA MURRAY [facility] interpretation performed at [place] [address]. [place] Number: [id number] [facility] Progress Noteon 01-29-2017 Nursing Manager Authentication Interface Message Text Patient ID: Shanthi Damon is a 16 y.o. female. Her chief complaint(s) include:16 YEAR WELL CHILD.Assessment:1. Encounter for routine child health examination without abnormal findings2. Exercise counseling3. Encounter for dietary counseling and surveillancePlan:Shanthi was seen today for 16 year well child.Diagnoses and all orders for this visit:Encounter for routine child health examination without abnormal findings- Behavioral/Emotional Assessment w Score - PHQ-9Exercise counselingEncounter for dietary counseling and surveillanceReturn in about 1 year (around 01/29/2018) for well check.Subjective:The patient's reason for visit is Well Check 16 Year. She is accompanied by hermother and sibling(s).16 YEAR WELL CHILDHome:Shanthi eats meals with family, has an adult to turn to for help and is permittedand able to make independent decisions. Shanthi has no home risk identified.Education:She Is in 8th grade and is doing well, earns A's, is meeting expectations andis getting along with peers. 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 She engages inscreen time more than 2 hours daily and does not participate in music programs.Drugs:She does not use tobacco, does not use drugs and does not use alcohol.Safety:She has a violence free home, has peer relationships free from violence and useshelmet.Sex:Shanthi is not sexually active. STD screening offered and declined.Suicidality:She has ways to cope with stress and displays self-confidence. She has noproblems with sleep, has no depression, has no anxiety, does not have moodswings, has no suicidal ideation, has no homicidal ideation and has no mentalhealth risk identified.MenstruationLa st Menstrual period: LMP from [facility]'s last menstrual period was 12/30/2016 (exact date)..(Menarche: age 15)Menstruation: regular periods (no issues)OutputUrine and Stool Pattern:Urine and Stool Pattern: Normal stool pattern, no constipation, normal urinepattern, no nocturnal enuresis.Stool Consistency: softSleepSleeping Difficulty: no difficulty sleepingHours of sleep at a time: 8 (to 9 1/2 hours)Teen Anticipatory GuidanceThe following anticipatory guidance was reviewed during the visit:Nutrition: limit junk food/fast food and soft drinks.Safety: use safety helmet/gear with activities.Social: avoid or limit screen time and parental limits and consequences forunacceptable behavior.Health: age appropriate dental care, age appropriate sleep habits, elevatednoise and hearing, avoid situations where drugs and alcohol are present, how toresist peer pressure to smoke, drink, use drugs, contraception/practice safesex/ use condoms, practice abstinence- the safest way to prevent andSTDs, talk with trusted adult if feeling sad or nervous, learn to manage timeand activities, be responsible for attendance/ homework/ course selection andlimit sun exposure/use sunscreen.CRAFFT AssessmentHas not used alcohol or other drugs.Has not ridden in a CAR driven by someone (including self) who was high orhad been using alcohol or drugs.ScreeningsPrevious Vaccine Reactions: No.Tuberculosis Concerns:Negative Tuberculosis Screen Concerns: no exposure to Tb or person with positiveppdHearing Vision Concerns:The caregiver has no concerns about the patient's hearing.The caregiver has no concerns about the patient's vision.(Vision tested at school).Hyperlipidemia Concerns:Negative Hyperlipidemia Screen Concerns: no parent or grandparent with CO anginaperipheral or cerebrovascular disease <55 years and no parent with cholesterol>240mg/dlPrima Care Review of SystemsObjective:Physical ExamConstitutional: She appears well. She is active. No distress.HENT:Head: Atraumatic.Right Ear: Tympanic membrane and external ear normal.Left Ear: Tympanic membrane and external ear normal.Nose: Nose normal.Mouth/Throat: Mucous membranes are moist. Dentition is normal. Oropharynx isclear.Eyes: Conjunctivae and EOM are normal. No strabismus. Pupils are equal, round,and reactive to light.Neck: Normal range of motion. Neck supple. Thyroid normal. No adenopathy.Cardiovascular : Normal rate, regular rhythm, S1 normal and S2 normal. Pulsesare palpable.No murmur heard.Pulmonary/Chest: Breath sounds normal. No respiratory distress. Exhibits nodeformity.Abdominal: Soft. Bowel sounds are normal. She exhibits no distension and nomass. There is no hepatosplenomegaly. There is no tenderness.Musculoskeleta l: Normal range of motion. Back: She exhibits no scoliosis.Neurological: She is alert. She has normal strength. She exhibits normal muscletone. Gait normal.Skin: No rash noted. No pallor. Skin is warm.Vitals reviewed: Blood pressure 135/66, pulse 94, height 159 cm, weight 61.1 kg,last menstrual period 12/30/2016. Normal [facility] Vital Signs Date Time Vital Sign Value Performing Clinician Faci yesi 02-24-2024 09:13040 Body height 160 cm Rosette Vivas MD Work Phone: [facility] 02-24-2024 09:130400 Body mass index (BMI) [Ratio] 29.05 kg/m2 Rosette Vivas MD Work Phone: [facility] 02-24-2024 09:13-0400 Body weight 74.39 kg Rosette Vivas MD Work Phone: [facility] 02-24-2024 09:13-0400 Diastolic blood pressure 70 mm[Hg] Rosette Vivas MD Work Phone: [facility] 02-24-2024 09:13-0400 Systolic blood pressure 112 mm[Hg] Rosette Vivas MD Work Phone: [facility] 04-01-2023 15:02-0400 Body weight 74.39 kg Rosette Vivas MD Work Phone: [facility] 04-01-2023 15:02-0400 Diastolic blood pressure 80 mm[Hg] Rosette Vivas MD Work Phone: [facility] 04-01-2023 15:02-0400 Systolic blood pressure 124 mm[Hg] Rosette Vivas MD Work Phone: [facility] 03-06-2023 13:08-0400 Body weight 72.[address] MD Work Phone: [facility] 03-06-2023 13:08-0400 Diastolic blood pressure 76 mm[Hg] Martha Way MD Work Phone: [facility] 03-06-2023 13:08-0400 Systolic blood pressure 126 mm[Hg] Martha Way MD Work Phone: [facility] 01-27-2023 13:44-0400 Body weight 73.03 kg Rosette Vivas MD Work Phone: [facility] 01-27-2023 13:44-0400 Diastolic blood pressure 84 mm[Hg] Rosette Vivas MD Work Phone: [facility] 01-27-2023 13:44-0400 Systolic blood pressure 138 mm[Hg] Rosette Vivas MD Work Phone: [facility] Encounters Encounter Date Encounter Type Care Provider Facility Start: 11-08-2024 Encounter for genera l adult medical examination without abnormal findings Patlynda Clarosjoan [facility] Start: 11-04-2024 End: 11-04-2024 ambulatory Pat [facility] Facility:[facility] Start: 02-24-2024 End: 02-24-2024 ambulatory [facility] Facility:[facility] Start: 02-24-2024 End: 02-24-2024 Patient encounter procedure Rosette Vivas MD Work Phone: OB/Gynecology Comment on above: Encounter for gyneco logical examination (general) (routine) without abnormal findings (Primary Dx); Screening for cervical cancer; Encounter for screening for human papillomavirus (HPV); Screen for STD (sexually transmitted disease) Start: 02-24-2024 End: 02-24-2024 Patient encounter status Rosette Vivas MD Work Phone: [facility] Start: 12-07-2023 End: 12-07-2023 ambulatory Amos Malin Facility:[facility] Start: 04-01-2023 End: 04-01-2023 ambulatory MANOJ Flower OVI Facility:[facility] Start: 04-01-2023 End: 04-01-2023 Patient encounter procedure Rosette Vivas MD Work Phone: OB/Gynecology Comment on above: Surveillance of prev iously prescribed intrauterine contraceptive device (Primary Dx); IUD (intrauterine device) in place Start: 03-06-2023 End: 03-06-2023 Patient encounter procedure Martha Way MD Work Phone: OB/Gynecology Comment on above: Surveillance of prev iously prescribed intrauterine contraceptive device (Primary Dx); Abnormal uterine bleeding (AUB) Start: 01-27-2023 End: 01-27-2023 Patient encounter procedure Rosette Vivas MD Work Phone: OB/Gynecology Comment on above: Encounter for initia l prescription of intrauterine contraceptive device (IUD) (Primary Dx); Encounter for other general counseling or advice on contraception; Anxiety due to invasive procedure Start: 02-12-2021 Patient encounter status Kurt Vivas MD Work Phone: [facility] Work Phone: Start: 01-29-2017 End: 01-29-2017 Ambulatory LISET Flower [facility] Procedures Date Procedure Procedure Detail Performing Clinician Start: 03-06-2023 Urine test visual color cmprsn praveenas Martha Way MD Work Phone: Plan of Treatment Date Care Activity Detail Author Start: 02-27-2025 End: 02-27-2025 Patient encounter procedure 02/27/2025 4:00 PM EDT Office Visit OB/Gynecology [address] [place] [address] Rosette Siddiqi MD [address] [place], [place] [id number] ANNUAL OB/Gynecology Comment on above: ANNUAL Start: 07-14-2024 Urine microalbumin profile [facility] Start: 03-20-2024 Influenza vaccination Influenza Vacc ine (#1) [facility] Start: 2023 Screening for malign ant neoplasm of cervix Cervical Cancer Screening [facility] Start: 03-20-2023 Covid-19 Vaccine ( season) Covid-19 Vaccine ( season) [facility] Start: 03-20-2023 Influenza vaccination C [facility] Start: 03-06-2023 End: 05-06-2023 CBC panel - Blood by Automated count CBC Lab Routine Abnormal uterine bleeding (AUB) Expected: 03/06/2023, Expires: 05/06/2023 [facility] Work Phone: Comment on above: Expected: 03/06/2023 , Expires: 05/06/2023 Start: 07-20-2022 DEPRESSION ASSESSMENT DEPRESSION ASS ESSMENT [facility] Start: 2020 Anxiety Screening Anxiety Screening [facility] Start: 2020 CHLAMYDIA SCREENING (-24) CHLAMYDIA SCREENING (18-24) [facility] Start: 2020 Depression Screening Depression Scre ening [facility] Start: 2020 GC (GONORRHEA) SCREENING (18-24) GC (GONORRHEA) SCREENING (18-24) [facility] Start: 2020 HEPATITIS C SCREENING HEPATITIS C [facility] Start: 2020 Hepatitis C screening Hepatitis C [facility] Start: 2020 HIV SCREENING HIV SCREENING [facility] Start: 2020 HIV screening HIV Screening [facility] Start: 2020 Screening for Chlamy jamir trachomatis Chlamydia Screening (18) [facility] Start: 2018 Meningococcal B Vaccine: Consider Based On Risk (1 of 2 - Patient Seeks Protection) Meningococcal B Vaccine: Consider Based On Risk (1 of 2 - Patient Seeks Protection) [facility] Start: 2018 MENINGOCOCCAL B: Consider based on risk (1 of 2 - Patient Seeks Protection) MENINGOCOCCAL B: Consider based on risk (1 of 2 - Patient Seeks Protection) [facility] Start: 2016 PEDS TO ADULT TRANSITION ANNUAL ASSESSMENT PEDS TO ADULT TRANSITION ANNUAL ASSESSMENT [facility] Start: 2014 PEDS TO ADULT TRANSITION INITIAL DISCUSSION PEDS TO ADULT TRANSITION INITIAL DISCUSSION [facility] Start: 03-08-2003 COVID-19 VACCINE (#1) COVID-19 VACCI NE (#1) [facility] Chlamydia trachomatis+Neisseria gonorrhoeae DNA [Presence] in Unspecified specimen by JOSE ARMANDO with probe detection GONORRHEA/CHLAMYDIA NAAT Lab Routine Screen for STD (sexually transmitted disease) 02/24/2024 9:34 AM EDT [facility] Insertion intrauteri ne device iud INSERT INTRAUTERINE DEVICE Procedures Routine Encounter for initial prescription of intrauterine contraceptive device (IUD) Encounter for other general counseling or advice on contraception Ordered: 01/27/2023 [facility] Work Phone: Comment on above: Ordered: 01/27/2023 PAP TEST PAP TEST Lab Jose tinajero Encounter for gynecological examination (general) (routine) without abnormal findings Screening for cervical cancer Encounter for screening for human papillomavirus (HPV) 02/24/2024 9:34 AM EDT [facility] Work Phone: [facility] Immunizations Immunization Date Immunization Notes Care Provider Giovani bonilla 07-15-2019 meningococcal polysaccharide (groups A, C, Y and W-135) diphtheria toxoid conjugate vaccine (MCV4P) Rosette Vivas MD Work Phone: [facility] Work Phone: 03-21-2015 Human Papillomavirus 9-valent vaccine Rosette Vivas MD Work Phone: [facility] 09-15-2014 human papilloma viru s vaccine, quadrivalent Rosette Vivas MD Work Phone: [facility] 07-14-2014 human papilloma viru s vaccine, quadrivalent Rosette Vivas MD Work Phone: [facility] 07-14-2014 meningococcal polysaccharide (groups A, C, Y and W-135) diphtheria toxoid conjugate vaccine (MCV4P) Rosette Vivas MD Work Phone: [facility] 07-14-2014 tetanus toxoid, redu mika diphtheria toxoid, and acellular pertussis vaccine, adsorbed Rosette Vivas MD Work Phone: [facility] 07-14-2014 varicella virus vaccine Karri Vivas MD Work Phone: [facility] 05-15-2014 influenza, live, intranasal, quadrivalent Rosette Vivas MD Work Phone: [facility] 05-15-2014 influenza virus vacc ine, unspecified formulation Rosette Vivas MD Work Phone: [facility] 05-14-2013 influenza virus vacc ine, live, attenuated, for intranasal use Rosette Vivas MD Work Phone: [facility] 04-17-2012 influenza virus vacc ine, live, attenuated, for intranasal use Rosette Vivas MD Work Phone: [facility] 05-10-2011 influenza virus vacc ine, live, attenuated, for intranasal use Rosette Vivas MD Work Phone: [facility] Work Phone: 07-05-2010 influenza virus vacc ine, live, attenuated, for intranasal use Rosette Vivas MD Work Phone: [facility] 05-28-2010 influenza virus vacc ine, live, attenuated, for intranasal use Rosette Vivas MD Work Phone: [facility] Work Phone: 04-19-2009 influenza virus vacc ine, live, attenuated, for intranasal use Rosette Vivas MD Work Phone: [facility] Work Phone: 05-19-2008 influenza virus vacc ine, live, attenuated, for intranasal use Rosette Vivas MD Work Phone: [facility] 09-15-2007 diphtheria, tetanus toxoids and acellular pertussis vaccine Rosette Vivas MD Work Phone: [facility] 09-15-2007 measles, mumps and rubella virus vaccine Rosette Vivas MD Work Phone: [facility] 09-15-2007 poliovirus vaccine, inactivated Rosette Vivas MD Work Phone: [facility] 05-24-2007 influenza virus vacc ine, unspecified formulation Rosette Vivas MD Work Phone: [facility] Work Phone: 05-18-2006 influenza virus vacc ine, unspecified formulation Rosette Vivas MD Work Phone: [facility] Work Phone: 05-15-2005 influenza virus vacc ine, unspecified formulation Rosette Vivas MD Work Phone: [facility] Work Phone: 05-07-2004 influenza virus vacc ine, unspecified formulation Rosette Vivas MD Work Phone: [facility] 05-07-2004 pneumococcal conjuga te vaccine, 7 valent Rosette Vivas MD Work Phone: [facility] 12-08-2003 diphtheria, tetanus toxoids and acellular pertussis vaccine Rosette Vivas MD Work Phone: [facility] 12-08-2003 varicella virus vaccine Karri Vivas MD Work Phone: [facility] 09-12-2003 haemophilus influenz ae type b vaccine, HbOC conjugate Rosette Vivas MD Work Phone: [facility] 09-12-2003 measles, mumps and rubella virus vaccine Rosette Vivas MD Work Phone: [facility] 06-08-2003 hepatitis B vaccine, pediatric or pediatric/adolescent dosage Rosette Vivas MD Work Phone: [facility] 06-08-2003 influenza virus vacc ine, unspecified formulation Rosette Vivas MD Work Phone: [facility] 05-05-2003 influenza virus vacc ine, unspecified formulation Rosette Vivas MD Work Phone: [facility] 03-09-2003 diphtheria, tetanus toxoids and acellular pertussis vaccine Rosette Vivas MD Work Phone: [facility] 03-09-2003 haemophilus influenz ae type b vaccine, HbOC conjugate Rosette Vivas MD Work Phone: [facility] 03-09-2003 pneumococcal conjuga te vaccine, 7 valent Rosette Vivas MD Work Phone: [facility] 03-09-2003 poliovirus vaccine, inactivated Rosette Vivas MD Work Phone: [facility] 01-06-2003 diphtheria, tetanus toxoids and acellular pertussis vaccine Rosette Vivas MD Work Phone: [facility] 01-06-2003 haemophilus influenz ae type b vaccine, HbOC conjugate Rosette Vivas MD Work Phone: [facility] 01-06-2003 pneumococcal conjuga te vaccine, 7 valent Rosette Vivas MD Work Phone: [facility] 01-06-2003 poliovirus vaccine, inactivated Rosette Vivas MD Work Phone: [facility] 2002 diphtheria, tetanus toxoids and acellular pertussis vaccine Rosette Vivas MD Work Phone: [facility] 2002 haemophilus influenz ae type b vaccine, HbOC conjugate Rosette Vivas MD Work Phone: [facility] [facility] pneumococcal conjuga te vaccine, 7 valent Rosette Vivas MD Work Phone: [facility] 2002 poliovirus vaccine, inactivated Rosette Vivas MD Work Phone: [facility] 2002 hepatitis B vaccine, pediatric or pediatric/adolescent dosage Rosette Vivas MD Work Phone: [facility] 2002 hepatitis B vaccine, pediatric or pediatric/adolescent dosage Rosette Vivas MD Work Phone: [facility] Payers Date Payer Category Payer Self-pay 2021 Private Health Insurance [facility] CHO[facility] PL[facility] [id number] 2021-[facility] [phone] [id number] [place] [address] HMO [id number] 2021 Unknown [id number] Unknown [id number] Unknown [id number] Unknown [id number] Social History Date Type Detail Facility Start: 01-27-2023 Tobacco smoking status NHIS Never sm oked tobacco [facility] Start: 01-27-2023 Tobacco use and exposure Smoke less tobacco non-user [facility] Start: 01-27-2023 End: 04-01-2023 Alcohol intake Lifetime non-drinker (finding) [facility] Start: 05-16-2020 End: 02-24-2024 History of Social function [facility] Start: 05-16-2020 End: 02-24-2024 Alcohol Use Disorder Identification Test - Consumption [AUDIT-C] [facility] How often to you hav e a drink containing alcohol? Never [facility] Average Number of Drinks Not on file [facility] Start: 2002 Sex Assigned At Female [facility] Start: 10-04-2020 Gender identity Identifies as female gender (finding) [facility] Start: 01-21-2021 Sexual orientation Heterosexual (fin ding) [facility] Start: 02-24-2024 Alcohol intake Current drinke r of alcohol (finding) [facility] Start: 02-24-2024 Alcohol Comment occasional [facility] Clinical Notes 02-14-2021 to 02-24-2024 Rosette Siddiqi MD - 02/24/2024 9:07 AM Rosette Edmonds MD - 04/01/2023 2:56 PM Martha Durbin MD - 03/06/2023 1:07 PM EDT Note Date & Type Note Facility 02-24-2024 Note HNO ID: [id number] Author: ROSETTE SIDDIQI MD Service: ? 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 Shanthi is a 23 year old who presents for an annual gynecologic exam without complaints. Got kinyarwanda frank puppy and new house. Menses: cycles every 28-30 days and 5-6 days of flow. 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 PAST MEDICAL HISTORY 08/2015: Menstrual cycle disorder No date: NEGATIVE MEDICAL HISTORY Comment: normal Color visionPAST SURGICAL HISTORY 02/14/2021: TONSILLECTOMY AND ADENOIDECTOMY 02/11/2024: TOOTH EXTRACTION Comment: Mandaree teeth FAMILY HISTORY Problem Relation Age of Onset Seizures Mother None Father No Known Problems Sister Hypertension Maternal Grandmother None Maternal Grandfather None Paternal Grandmother None Paternal Grandfather Breast Cancer Maternal great-grandmother age unknown SOCIAL HISTORY Social History Tobacco Use Smoking status: Never Smokeless tobacco: Never Vaping Use Vaping Use: Never used Substance Use Topics Alcohol use: Yes Comment: occasional Drug use: Never REVIEW OF SYSTEMS Abdomen: No abdominal pain, nausea, vomiting, diarrhea, or constipation. No bloating, early satiety, indigestion, or increased flatulence. Bladder: No dysuria, gross hematuria, urinary frequency, urinary urgency, or incontinence. Breast: No breast lumps, nipple d/c, overlying skin changes, redness or skin retraction. Allergies and current medication updated:Yes EXAM: BP 112/70 Ht 5' 3 (1.60m) Wt 164 lb (74.4kg) LMP 02/06/2024 BMI 29.06 kg/(m2). GENERAL: pleasant, female in no apparent distress HEENT: Normocephalic, atraumatic, mucus membranes moist, and no lesions NECK: Supple, full range of motion, no adenopathy, and thyroid normal DERMATOLOGY: Normal, without lesions, non-icteric, and non-hirsute BREAST: soft, non-tender, symmetric, no dominant mass, normal nipple-areolar complex, no lymphadenopathy, and no nipple discharge ABDOMEN: soft, non-tender, and no masses PELVIC: external genitalia normal, normal Bartholin's glands, urethra, Jauca's glands, no vulvar lesions, no cervical lesions, good vaginal support, physiologic discharge present, normal appearing perineal body and perianal region, IUD strings visible BIMANUAL: uterus normal size, shape and consistency, no adnexal masses, and non-tender RECTOVAGINAL: deferred. NEURO: alert and oriented x3,exam grossly non-focal EXTREMITIES: normal ASSESSMENT/PLAN: 1) Health maintenance: Pap done with reflex HPV. Mammogram starting age 40. Nutrition, exercise and routine health maintenance exams reviewed. HPV vaccine: completed series 2) Contraception: IUD. Contraceptive options reviewed and information provided. 3) STD screening: Accepted STD check for Gonorrhea and Chlamydia. 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 Shanthi is a 23 year old who presents for an annual gynecologic exam without complaints. Got kinyarwanda frank puppy and new house. Menses: cycles every 28-30 days and 5-6 days of flow. 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 PAST MEDICAL HISTORY 08/2015: Menstrual cycle disorder No date: NEGATIVE MEDICAL HISTORY Comment: normal Color visionPAST SURGICAL HISTORY 02/14/2021: TONSILLECTOMY & ADENOIDECTOMY <AGE 14 02/11/2024: TOOTH EXTRACTION Comment: Mandaree teeth FAMILY HISTORY Problem Relation Age of Onset Seizures Mother None Father No Known Problems Sister Hypertension Maternal Grandmother None Maternal Grandfather None Paternal Grandmother None Paternal Grandfather Breast Cancer Maternal great-grandmother age unknown SOCIAL HISTORY Social History Tobacco Use Smoking status: Never Smokeless tobacco: Never Vaping Use Vaping Use: Never used Substance Use Topics Alcohol use: Yes Comment: occasional Drug use: Never REVIEW OF SYSTEMS Abdomen: No abdominal pain, nausea, vomiting, diarrhea, or constipation. No bloating, early satiety, indigestion, or increased flatulence. Bladder: No dysuria, gross hematuria, urinary frequency, urinary urgency, or incontinence. Breast: No breast lumps, nipple d/c, overlying skin changes, redness or skin retraction. Allergies and current medication updated:Yes EXAM: BP 112/70 Ht 5' 3 (1.60m) Wt 164 lb (74.4kg) LMP 02/06/2024 BMI 29.06 kg/(m^2). GENERAL: pleasant, female in no apparent distress HEENT: Normocephalic, atraumatic, mucus membranes moist, and no lesions NECK: Supple, full range of motion, no adenopathy, and thyroid normal DERMATOLOGY: Normal, without lesions, non-icteric, and non-hirsute BREAST: soft, non-tender, symmetric, no dominant mass, normal nipple-areolar complex, no lymphadenopathy, and no nipple discharge ABDOMEN: soft, non-tender, and no masses PELVIC: external genitalia normal, normal Bartholin's glands, urethra, Jauca's glands, no vulvar lesions, no cervical lesions, good vaginal support, physiologic discharge present, normal appearing perineal body and perianal region, IUD strings visible BIMANUAL: uterus normal size, shape and consistency, no adnexal masses, and non-tender RECTOVAGINAL: deferred. NEURO: alert and oriented x3,exam grossly non-focal EXTREMITIES: normal ASSESSMENT/PLAN: 1) Health maintenance: Pap done with reflex HPV. Mammogram starting age 40. Nutrition, exercise and routine health maintenance exams reviewed. HPV vaccine: completed series 2) Contraception: IUD. Contraceptive options reviewed and information provided. 3) STD screening: Accepted STD check for Gonorrhea and Chlamydia. 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 Shanthi Damon presents today for IUD check. She had a Paraguard placed on 02/12/23. She has had no complications since placement. REVIEW OF SYSTEMS: GENERAL: Negative for fever PHYSICAL EXAMINATION: BP 124/80 Wt 164 lb (74.4kg) LMP 01/17/2023 ABDOMEN:soft, non-tender, no masses, no hepatosplenomegaly, and no lymphadenopathy EXTERNAL GENITALIA: Normal genitalia CERVIX: smooth, no lesions. IUD strings visible. UTERUS: normal size and non-tender ADNEXA: negative for tenderness or masses IMPRESSION/PLAN: IUD correctly positioned. Follow up for annual exam or sooner if needed. I spent a total of 20 minutes on the date of the service which included preparing to see the patient, [id number] patient care, completing clinical documentation, obtaining and/or reviewing separately obtained history, performing a medically appropriate examination, and counseling and educating the patient/family/caregiver . Rosette Gudino MD documented in this encounter [facility] 04-01-2023 Note HNO ID: [id number] Author: Rosette Siddiqi MD Service: ? 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 Shanthi Damon presents today for IUD check. She had a Paraguard placed on 02/12/23. She has had no complications since placement. REVIEW OF SYSTEMS: GENERAL: Negative for fever PHYSICAL EXAMINATION: BP 124/80 Wt 164 lb (74.4kg) LMP 01/17/2023 ABDOMEN:soft, non-tender, no masses, no hepatosplenomegaly, and no lymphadenopathy EXTERNAL GENITALIA: Normal genitalia CERVIX: smooth, no lesions. IUD strings visible. UTERUS: normal size and non-tender ADNEXA: negative for tenderness or masses IMPRESSION/PLAN: IUD correctly positioned. Follow up for annual exam or sooner if needed. I spent a total of 20 minutes on the date of the service which included preparing to see the patient, [id number] patient care, completing clinical documentation, obtaining and/or reviewing separately obtained history, performing a medically appropriate examination, and counseling and educating the patient/family/caregiver . Rosette Gudino MD [facility] [place] 03-06-2023 History of Present illness Narrative Shanthi Damon is a 22 year old female who presents for problem visit for f/u IUD . HPI: 22-year-old female who had an IUD placed on 725 presents complaining of heavy vaginal bleeding. This is a 22-year-old female who had an IUD placed on 725 presents complaining of heavy vaginal bleeding. This is about a week before her. Would be due. She had some spotting for a few days after the IUD was placed but eventually it stopped for 2 weeks and now started again. She is passing clots of blood through her protection twice yesterday which is not normal for her. She is also having some cramping and taking NSAIDs for that. She is able to do her normal functions. She denies any lightheadedness or dizziness or shortness of breath or chest pain. 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 History Comments: Sexual Activity: Never; No partner data on record Contraception: No contraception data on record PAST MEDICAL HISTORY Diagnosis Date Menstrual cycle disorder 08/2015 NEGATIVE MEDICAL HISTORY normal Color vision PAST SURGICAL HISTORY Procedure Laterality Date TONSILLECTOMY & ADENOIDECTOMY <AGE 14 02/14/2021 FAMILY HISTORY Problem Relation Age of Onset Seizures Mother None Father None Sister Hypertension Maternal Grandmother None Maternal Grandfather None Paternal Grandmother None Paternal Grandfather Breast Cancer Maternal great-grandmother age unknown Social History Tobacco Use Smoking status: Never Smokeless tobacco: Never Vaping Use Vaping Use: Never used Substance Use Topics Alcohol use: Never Drug use: Never Current Outpatient Medications Medication Sig copper (PARAGARD) 380 square mm intrauterine device 1 Intra Uterine Device by INTRAUTERINE route as directed. MULTIVITAMIN ORAL Take by mouth. No current facility-administered medications for this visit. Allergies As of Date: 03/06/2023 Allergen Noted Reaction AUGMENTIN [AMOXICILLIN-POT CLAVUL*07/15/2019 Hives KEFLEX [CEPHALEXIN] 07/15/2019 Hives OMNICEF [CEFDINIR] 09/14/2009 Hives Fully Assessed 03/06/2023 Allergies and current medication updated:Yes EXAM: BP 126/76 Wt 160 lb (72.6kg) LMP 01/17/2023 GENERAL: pleasant, female in no apparent distress PELVIC: external genitalia normal, normal Bartholin's glands, urethra, Jauca's glands, no vulvar lesions, no cervical lesions, good vaginal support, normal appearing perineal body and perianal region, moderate amount of dark red blood in the vault, IUD strings are 2 cm long. No purulent discharge. No active bleeding from the cervix BIMANUAL: uterus normal size, shape and consistency, no adnexal masses, and non-tender Brief transabdominal ultrasound was done which showed the IUD in the endometrial. ASSESSMENT AND PLAN: Encounter Diagnosis ICD-10-CM 1. Surveillance of previously prescribed intrauterine contraceptive device Z30.431 AUB check hCG. If heavy bleeding continues and will check CBC. Monitor bleeding and return is bothersome enough that she wants to change contraceptive options. Discussed with her may take 2 or 3 months to get heavier menses with copper IUD are expected. Lysteda rx given to slow bleeding. Push fluids, rest and take a multivitamin with iron. Use scheduled NSAIDs as needed. Martha Way MD documented in this encounter [facility] 01-27-2023 History of Present illness Narrative Shanthi Damon is a 22 year old female who presents for discussion regarding IUD placement. Patient previously was on oral contraceptive pills but did not like the way that she felt on it as she felt more [place] and did not feel herself. She states she has not been on the pill for over a year. She states that her menses are regular every 28 days she bleeds for approximately 5 days and they are light to moderate flow. She denies any significant pain with her cycles. She reports she is sexually active and uses condoms for contraception. Patient would like something more effective as she is not ready to become . Patient is very emotional today as she is scared of having a pelvic exam and is terrified of medical procedures. She also knows that an IUD is the most effective form of control and she does not want any hormones. Patient is interested in a ParaGard IUD. Patient offers no other concerns at this time. 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 History Comments: Sexual Activity: Never; No partner data on record Contraception: No contraception data on record PAST MEDICAL HISTORY Diagnosis Date Menstrual cycle disorder 08/2015 NEGATIVE MEDICAL HISTORY normal Color vision PAST SURGICAL HISTORY Procedure Laterality Date TONSILLECTOMY & ADENOIDECTOMY <AGE 14 02/14/2021 FAMILY HISTORY Problem Relation Age of Onset Seizures Mother None Father None Sister Hypertension Maternal Grandmother None Maternal Grandfather None Paternal Grandmother None Paternal Grandfather Breast Cancer Maternal great-grandmother age unknown Social History Tobacco Use Smoking status: Never Smokeless tobacco: Never Vaping Use Vaping Use: Never used Substance Use Topics Alcohol use: Never Drug use: Never Current Outpatient Medications Medication Sig Norethin Zackery-Eth Estrad-FE (BLISOVI FE ,) 1 mg-20 mcg (21)/75 mg (7) per tablet Take 1 tablet by mouth once daily. MULTIVITAMIN ORAL Take by mouth. No current facility-administered medications for this visit. Allergies As of Date: 01/27/2023 Allergen Noted Reaction AUGMENTIN [AMOXICILLIN-POT CLAVUL*07/15/2019 Hives KEFLEX [CEPHALEXIN] 07/15/2019 Hives OMNICEF [CEFDINIR] 09/14/2009 Hives Fully Assessed 01/27/2023 REVIEW OF SYSTEMS Abdomen: no pain Expanded ROS: no fever Allergies and current medication updated:Yes EXAM: BP 138/84 Wt 161 lb (73.0kg) LMP 01/17/2023 GENERAL: pleasant, female in no apparent distress HEENT: Normocephalic, atraumatic, mucus membranes moist, and no lesions NECK: full range of motion DERMATOLOGY: Normal and without lesions NEURO: alert and oriented x3,exam grossly non-focal EXTREMITIES: normal ASSESSMENT AND PLAN: Encounter Diagnosis ICD-10-CM 1. Encounter for initial prescription of intrauterine contraceptive device (IUD) Z30.014 INSERT INTRAUTERINE DEVICE 2. Encounter for other general counseling or advice on contraception Z30.09 INSERT INTRAUTERINE DEVICE 3. 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 Discussed IUD options and placement. We discussed what she could expect during the procedure. We discussed taking Cytotec prior to the procedure and also giving her Xanax prior to the procedure for anxiety. Discussed paracervical block but honestly due to her needle phobia this may be more anxiety provoking. Discussed that she will need to leave a urine test prior to the procedure. Discussed with the patient that she will need to have somebody drive her to and from the procedure. All questions were answered to the best my ability. Pamphlet was given to her for further review. Medical Decision Making: Risk: Moderate: Drug management Medical Decision Making Level: 2 - Straightforward Rosette Gudino MD documented in this encounter [facility] 06-19-2021 Note HNO ID: [id number] Author: Gladis Salamanca, DO Service: ? Author Type: Physician Type: Progress Notes Filed: 06/19/2021 3:26 PM Note Text: SERVICE DATE: 06/19/2021 SERVICE TIME: 3:25 PM Subjective CHIEF COMPLAINT: BC follow up HPI: This is a 20 year old female who presents for 3-month follow-up of contraception. Treatment on pills 03/13/2021 as she was considering sexual activity with her partner Loestrin started at that time as she passed safety questions The first 2 months were perfect. Then during her third month she has been having breast tenderness, hair thinning, AUB, cramping. Currently she is long-term through the fourth pack. Took a test 1 week ago and was negative. Does not miss pills Takes them at the same time every day Periods were predictable within the placebo week for the first three months Quality of menses was the same No changes in mooed Taking pills horizontally More frequent headaches but they are the same quality as in the past No changes in vision Is studying [employer] in [employer]. Is not stressed at school. Has a strong relationship with her partner. PAST MEDICAL HISTORY Diagnosis Date - Menstrual cycle disorder 08/2015 - NEGATIVE MEDICAL HISTORY normal Color vision PAST SURGICAL HISTORY Procedure Laterality Date - REMOVE TONSILS/ADENOIDS,<14 Y/O 02/14/2021 FAMILY HISTORY Problem Relation Age of Onset - Seizures Mother - None Father - None Sister - Hypertension Maternal Grandmother - None Maternal Grandfather - None Paternal Grandmother - None Paternal Grandfather - Breast Cancer Maternal great-grandmother age unknown Social History Tobacco Use - Smoking status: Never Smoker - Smokeless tobacco: Never Used Vaping Use - Vaping Use: Never used Substance Use Topics - Alcohol use: Never - Drug use: Never (Not in a hospital admission) ALLERGIES Allergen Reactions - Augmentin [Amoxicil* Hives - Keflex [Cephalexin] Hives - Omnicef [Cefdinir] Hives COMPLETE REVIEW OF SYSTEMS: No fevers or chills No brittle finger nails No palpitations No shortness of breath breast tenderness, hair thinning, AUB, cramping Objective PHYSICAL EXAM: 06/19/21 1439 BP: 116/88 Weight: 159 lb 3.2 oz (72.2 kg) Height: 5' 3 (1.6 m) Physical Exam Performed: GENERAL: Alert, no distress, cooperative SKIN: Skin color, texture, turgor normal. No rashes or lesions. HEAD/SINUSES: No significant findings, wears mask EYES: PERRLA, EOMI ABDOMEN: Abdomen soft, non-tender, BS normal, No masses or organomegaly EXTREMITIES: Extremities normal, no deformities, edema, clubbing or skin discoloration. Good capillary refill. NEURO: Grossly normal cognition, motor function, and cranial nerves III-XII ASSESSMENT/PLAN: 1. Breakthrough bleeding on control pills - ICD9: 626.6, ICD10: N92.1 (primary diagnosis) - TSH BLD - T4 FREE/FREE THYROX - HCG QUANTITATIVE 2. Hair thinning - ICD9: 704.00, ICD10: L65.9 - BIOAVAIL TESTO/SHBG, FEM AND CHILD - DHEA-S BLD Check labs today Will call with next steps of care while waiting for Testosterone results If normal - stop pills x 7 days then start a new pack If AUB persists through these types of pills, then we'll try a different type of OCP If her TSH is abnormal, then we will address this Gladis Salamanca DO [facility] 03-13-2021 Note HNO ID: [id number] Author: Gladis Salamanca DO Service: ? Author Type: Physician Type: Progress Notes Filed: 03/13/2021 3:22 PM Note Text: 03/13/21 HPI: Shanthi Damon is a 20 year old female who presents for a new patient, contraception visit. Mammo: no Menses: Predictable, bleeds 5 days Q 28 days. No IMS. No concerns for menorrhagia and dysmenorrhea. control: no history Would like to discuss contraception in case she decides to become sexually active with her BF. 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: 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: 15 years old History of unwanted sexual contact, verbal/physical/sexual assault or abuse: No Abnormal Paps: n/a FMH of breast/ovarian/colon or uterine cancer: MGGM breast cancer age unknown Genetic testing: no FAMILY HISTORY Problem Relation Age of Onset - Seizures Mother - None Father - Hypertension Maternal Grandmother - None Maternal Grandfather - None Paternal Grandmother - None Paternal Grandfather - None Sister ALLERGIES Allergen Reactions - Augmentin [Amoxicil* Hives - Keflex [Cephalexin] Hives - Omnicef [Cefdinir] Hives PRESENT MEDICATIONS: Current Outpatient Medications Medication Sig - MULTIVITAMIN ORAL Take by mouth. - oxyCODONE (ROXICODONE) 5 mg/5 mL oral solution Take 5 mL by mouth every 4 hours as needed for pain for up to 30 doses. (Patient not taking: Reported on 03/13/2021) No current facility-administered medications for this visit. PERSONAL HISTORY: Occupation: Just moved into [employer]. From [place]. Plans to study communications with a business minor. Social History Tobacco Use - Smoking status: Never Smoker - Smokeless tobacco: Never Used Vaping Use - Vaping Use: Never used Substance Use Topics - Alcohol use: Never - Drug use: Never PAST MEDICAL HISTORY Diagnosis Date - Menstrual cycle disorder 08/2015 - NEGATIVE MEDICAL HISTORY normal Color vision IMMUNIZATION Immunization History Administered Date(s) Administered DTaP (Age<7) 2002 01/06/2003 03/09/2003 12/08/2003 09/15/2007 HUMAN PAPILLOMAVIRUS QUADRIVALENT - Male and Females 07/14/2014 09/15/2014 Hepatitis B Peds/Adol 2002 2002 06/08/2003 Hib - 4 Dose Schedule 2002 01/06/2003 03/09/2003 09/12/2003 Human Papillomavirus 9-valent Vaccine, Recombinant 03/21/2015 IPV 2002 01/06/2003 03/09/2003 09/15/2007 Influenza Vaccine NASAL Quadrivalent 05/15/2014 Influenza Vaccine NASAL Tri (reflects Quad for 2012-) 05/19/2008 04/19/2009 05/28/2010 07/05/2010 05/10/2011 04/17/2012 05/14/2013 Influenza Vaccine, Split-Non Spec 05/05/2003 06/08/2003 05/07/2004 05/15/2005 05/18/2006 05/24/2007 MMR 09/12/2003 09/15/2007 Meningococcal Conjugate MCV4P Vaccine, IM 07/14/2014 07/15/2019 Pneumococcal Vac Conjugate(#7 thru OCTOBER 2009 then #13 thereafter) 2002 01/06/2003 03/09/2003 05/07/2004 Tdap (Age 7+) 07/14/2014 Varicella Vaccine 12/08/2003 07/14/2014 PAST SURGICAL HISTORY Procedure Laterality Date - NONE I have confirmed and edited as necessary, the PFSH and ROS obtained by others. YES REVIEW OF SYSTEMS PAIN ASSESSMENT: Negative for pain, history of chronic pain, or current treatment for a chronic pain condition. 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 General: well groomed, well developed 20 yo female who appears stated age Neuro: alert and oriented x3, CN II-XII grossly intact Psych: pleasant mood, normal affect HEENT: normocephalic, atraumatic, PEERL, EOMI, neck supple without thyromegaly. No cervical lymphadenopathy Cardiovasc (more content not included)... 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 Staffing CAA: DIANA Cline Performed by: WINSOME Indications and Patient Condition Preoxygenated: yes Patient position: sniffing Manual In-Line Stabilization: Yes Difficult Mask: No Indications for airway management: anesthesia anesthesia circuit Method: asleep Cricoid Pressure: No Final Airway Details Final airway type: endotracheal airway Final Endotracheal Airway: ETT Cuffed: yes Successful intubation technique: direct laryngoscopy Endotracheal tube insertion site: oral Blade: Malu Blade size: #3.5 ETT size (mm): 7.0 Measured from: gums Measurement (cm): 22 Placement verified by: chest auscultation and capnometry Cormack-Lehane Classification: grade I - full view of glottis Number of attempts at approach: 1 SIGNATURE: DAINA Kim PATIENT NAME: Shanthi Damon DATE: February 14, 2021 TIME: 7:58 AM CSN: [id number] [facility] Evaluation note Diagnosis Encounter for other general counseling or advice on contraception Anxiety due to invasive procedure [facility] Diagnosis Surveillance of previously prescribed intrauterine contraceptive device- Primary Abnormal uterine bleeding (AUB) [facility] Diagnosis Surveillance of previously prescribed intrauterine contraceptive device- Primary IUD (intrauterine device) in place Presence of intrauterine contraceptive device [facility] Diagnosis Encounter for gynecological examination (general) (routine) without abnormal findings- Primary Screening for cervical cancer Screening for malignant neoplasm of the cervix Encounter for screening for human papillomavirus (HPV) Special screening examination for human papillomavirus (HPV) Screen for STD (sexually transmitted disease) Screening examination for venereal disease documented [facility]ative[facility] Outpatient Procedure (Routine) - Authorized Specialty Diagnoses / Procedures Referred By Sadi ledesma Referred To Contact [facility] Diagnoses Encounter for insertion of intrauterine contraceptive device Encounter for removal of intrauterine contraceptive device Procedures INSERT INTRAUTERINE DEVICE INTRAUT COPPER CONTRACEPTIVE INSERT INTRAUTERINE DEVICE REMOVE INTRAUTERINE DEVICE Rosette Siddiqi MD [address] [place] [id number] [place] [address] Referral ID Status Reason Start Date Expiration Date Visits Requested Visits Authorized [id number] Authorized Auto-Generat ed Referral 01/27/2023 07/19/2023 2 2 [facility] Summary Purpose Family History No Family History Records FoundNo Family History Records FoundNo Family History Records FoundNo Family History Records FoundNo Family History Records Found Advance Directives No Advanced Directives Records FoundNo Advanced Directives Records FoundNo Advanced Directives Records FoundNo Advanced Directives Records FoundNo Advanced Directives Records Found Additional Source Comments INFORMATION SOURCE (unrecogn ized section and content) DATE CREATED AUTHOR 01/13/2018 [facility] DATE CREATED AUTHOR AUTHOR'S ORGANIZ ATION 02/19/2021 [facility] DATE CREATED AUTHOR AUTHOR'S ORGANIZ ATION 06/27/2021 [facility] DATE CREATED AUTHOR AUTHOR'S ORGANIZ ATION 03/08/2024 [facility] DATE CREATED AUTHOR AUTHOR'S ORGANIZ ATION 11/10/2024 [facility] Source Comments (unrecognize d section and content) In the event this informatio n is protected by the Federal Confidentiality of Alcohol and Drug Abuse Patient Records regulations: The Federal rules restrict any use of the information to criminally investigate or prosecute any alcohol or drug abuse patient.[facility] the event this information is protected by the Federal Confidentiality of Alcohol and Drug Abuse Patient Records regulations: The Federal rules restrict any use of the information to criminally investigate or prosecute any alcohol or drug abuse patient.[facility] the event this information is protected by the Federal Confidentiality of Alcohol and Drug Abuse Patient Records regulations: The Federal rules restrict any use of the information to criminally investigate or prosecute any alcohol or drug abuse patient.[facility] the event this information is protected by the Federal Confidentiality of Alcohol and Drug Abuse Patient Records regulations: The Federal rules restrict any use of the information to criminally investigate or prosecute any alcohol or drug abuse patient.[facility] Reason for Visit (unrecogniz ed section and content) Reason Comments Consult Specialty Diagnoses / Procedures Referred By Sadi t Referred To Contact [facility] [place] Diagnoses Encounter for insertion of intrauterine contraceptive device Encounter for removal of intrauterine contraceptive device Procedures INSERT INTRAUTERINE DEVICE INTRAUT COPPER CONTRACEPTIVE INSERT INTRAUTERINE DEVICE REMOVE INTRAUTERINE DEVICE Rosette Siddiqi MD [address] [place] [address] [facility] [address] [place] [address] Referral ID Status Reason Start Date Expiration Date Visits Requested Visits Authorized [id number] Authorized Auto-Generat ed Referral 01/27/2023 07/19/2023 2 2 Reason Comments IUD Reason Comments [facility] (unrecognized sec tion and content) Director Retirement Relationship Specialty Start Date End Date Manoj Dior MD [facility] [place] [address] PCP - General Family Medicine 02/01/19 Director Retirement Relationship Specialty Start Date End Date Manoj Dior MD [address] [place] [address] PCP - General Family Medicine 02/01/19 Director Retirement Relationship Specialty Start Date End Date Manoj Dior MD [address] [place] [address] PCP - General Family Medicine 02/01/19 Director Retirement Relationship Specialty Start Date End Date Manoj Dior MD [address] [place] [address] PCP - General Family Medicine 02/01/19 FOR RECORDS PERTAINING TO PATIENTS WHO ARE OR HAVE BEEN ENROLLED IN A CHEMICAL DEPENDENCY/SUBSTANCEABUSE PROGRAM, SOME INFORMATION MAY BE OMITTED. This clinical summary was aggregated from multiple sources. Caution should be exercised in using it in the provision of clinical care. This summary normalizes information from multiple sources, and as a consequence, information in this document may materially change the coding, format and clinical context of patient data. In addition, data may be omitted in some cases. CLINICAL DECISIONS SHOULD BE BASED ON THE PRIMARY CLINICAL RECORDS. [facility]. provides no warranty or guarantee of the accuracy or completeness of information in this document.
--- NOTE | 2025-02-05 18:20 | RAD_ITS ---
PROCEDURE: ELBOW 2 VIEWS 02/05/2025 REASON FOR EXAM: RADIOLOGIST ASKED FOR ANOTHER LATERAL TECHNIQUE: Right ELBOW 2 VIEWS COMPARISON: Right elbow radiographs 02/05/2025 FINDINGS: See below RAD/Elbow 2 Views IMPRESSION: No displaced fracture or significant joint effusion. Mild posterior soft tissu e swelling. Reading Location: [id number]
[2025-02-05 19:30] VITALS: BP 128/79; PULSE 80; RESP 16; TEMP 36.6; O2SAT 100
== END 2025-02-05 19:35 | disposition home or self-care (01) ==
PROVIDERS: Emergency Provider Emergency Medicine; PCP Nurse Practitioner Family; Referring Provider Emergency Medicine; Visit Provider Emergency Medicine
DX: S50.02XA Contusion of left elbow, initial encounter (principal); W16.032A Fall into swimming pool striking wall causing other injury, initial encounter; Y92.34 Swimming pool (public) as the place of occurrence of the external cause
CPT/HCPCS: 73070; 73080; 99282